=== PATIENT | female | born 1965 | race Caucasian/White ===

== ENCOUNTER 2017-02-23 11:21 | Emergency (ER) | payer MEDICAID ==
[~2017-02-23] VITALS: Ht 172.7 cm; Wt 90.0 kg
[~2017-02-23 11:21] MED LIST: ALBU8.5H3 INH; ALPR0.254 PO; ALPR0.257 PO; BUPR75TA6 PO; CEFD300C2 PO; CYCL-259 PO; DOXY100T PO; FLUT1AER INH; FURO-93 PO; GABA100C8 PO; GUAI5SYR PO; HYDR-3138 PO; HYDR25TA11 PO; HYDR25TA6 PO; LIDO700A5 TD; LISI-167 PO; LISI5TAB7 PO; LORA0.5T PO; METH4TAB2 PO; POTA10CA61 PO; RANI150T4 PO; SERT25TA3 PO; SILD20TA2 PO; TADA20TA33 PO; TRAM50TA2 PO; TRAZ100T15 PO; TREP1TAB PO; TREPROSTINIL DIOLAMINE PO; VERA240T86 PO; [UNRECOGNIZED DRUG - CODE] PO
[2017-02-23] MEDS ORDERED: HYDROmorphone 1 MG/ML, 1ML IV PRN (12:00)
[2017-02-23] MEDS ORDERED: SODIUM CHLORIDE FLUSH 10ML SYR IVF ONE (12:00)
[2017-02-23] MEDS ORDERED: HYDROmorphone 1 MG/ML, 1ML ONE (12:39)
[2017-02-23 13:00] LABS: HEMOGLOBIN 13.4 g/dL (11.7-16.4)
[2017-02-23] MEDS ORDERED: METHOCARBAMOL 1,000 MG in DEXTROSE 5% 100 ML IV ONE (13:00)
[2017-02-23 13:10] LABS: ASPARTATE AMINO TRANSFERASE 25 U/L (15-37); BLOOD UREA NITROGEN 18 mg/dL (7-18)
[2017-02-23 13:16] LABS: IS PT STATUS REG ER OR PRE ER? YES
[2017-02-23 13:35] VITALS: BP 148/91
== END 2017-02-23 14:23 | disposition home or self-care (01) ==
LOC: ED 12:54
DX: S29.019A Strain of muscle and tendon of unspecified wall of thorax, initial encounter (principal); I11.0 Hypertensive heart disease with heart failure; I50.9 Heart failure, unspecified; W10.9XXA Fall (on) (from) unspecified stairs and steps, initial encounter; Y93.89 Activity, other specified; Y92.89 Other specified places as the place of occurrence of the external cause; Y99.8 Other external cause status
CPT/HCPCS: 36415; 71020; 80053; 83880; 84484; 85025; 93005; 96365; 96375; 99285; J1170; J2800

== ENCOUNTER 2017-07-07 08:45 | Inpatient (IN) | payer MEDICAID ==
[~2017-07-07] VITALS: Ht 172.7 cm; Wt 98.3 kg
[~2017-07-07 08:45] MED LIST changes: -ALBU8.5H3 INH; +ALBU8.5H8 INH; -CEFD300C2 PO; +CEFD300C37 PO; +GABA-826 PO; -GABA100C8 PO; -HYDR-3138 PO; +HYDR-3237 PO
[2017-07-07] MEDS ORDERED: SODIUM CHLORIDE FLUSH 10ML SYR IVF ONE (09:30)
[2017-07-07] MEDS ORDERED: ASPIRIN 81 MG TABLET CHEW PO ONE (09:30)
[2017-07-07] MEDS ORDERED: ASPIRIN 81 MG TABLET CHEW ONE (09:36)
[2017-07-07 09:46] LABS: HEMATOCRIT 41.4 % (34.6-47.8); HEMOGLOBIN 13.8 g/dL (11.7-16.4); WHITE BLOOD COUNT 7.1 x10^3/uL (3.4-10)
[2017-07-07 09:58] LABS: ASPARTATE AMINO TRANSFERASE 18 U/L (15-37); BLOOD UREA NITROGEN 14 mg/dL (7-18)
[2017-07-07 10:03] LABS: IS PT STATUS REG ER OR PRE ER? YES
[2017-07-07] MEDS ORDERED: MORPHINE SULFATE 4 MG/ML, 1ML ONE ×2 (10:57→12:11)
[2017-07-07] MEDS: MORPHINE SULFATE 4 MG/ML, 1ML IVPush PRN ×2 (10:58→12:13)
[2017-07-07] MEDS ORDERED: LORazepam 2 MG/ML, 1ML IVPush STA (13:19)
[2017-07-07] MEDS ORDERED: GABA-827 PO (13:26)
[2017-07-07] MEDS ORDERED: METH500T7 PO (13:26)
[2017-07-07] MEDS ORDERED: FURO-93 PO (13:26)
[2017-07-07] MEDS ORDERED: ONDANSETRON ODT 4 MG PO PRN ×2 (14:30→16:30)
[2017-07-07] MEDS ORDERED: ALBUTEROL SULFATE 2.5 MG/3 ML NPPB PRN ×2 (14:30→16:30)
[2017-07-07] MEDS ORDERED: POLYETHYLENE GLYCOL 17 GM PACKET PO PRN ×2 (14:30→16:30)
[2017-07-07] MEDS ORDERED: ENALAPRILAT 1.25 MG/ML, 2ML IVPush PRN ×2 (14:30→16:30)
[2017-07-07] MEDS ORDERED: ONDANSETRON 2MG/ML, 2ML IVPush PRN ×2 (14:30→16:30)
[2017-07-07] MEDS ORDERED: ACETAMINOPHEN 325 MG TABLET PO PRN ×2 (14:30→16:30)
[2017-07-07] MEDS ORDERED: BISACODYL 10 MG SUPP PR PRN ×2 (14:30→16:30)
[2017-07-07 14:50] LABS: IS PT STATUS REG ER OR PRE ER? YES
[2017-07-07] MEDS: TREPROSTINIL DIOLAMINE HOMEMEDPO SCH ×2 (16:00→21:00)
[2017-07-07] MEDS ORDERED: SILDENAFIL 20 MG TABLET HOMEMEDPO SCH (16:00)
[2017-07-07 16:30] VITALS: BP 108/78
[2017-07-07] MEDS ORDERED: LORazepam 1MG TABLET PO PRN (17:00)
[2017-07-07] MEDS ORDERED: OMNIPAQUE 350 MG/ML, 100ML BOTTLE ONE (17:23)
[2017-07-07] MEDS: HYDROcodone/APAP 5/325 TABLET PO PRN ×2 (17:36→21:35)
[2017-07-07] MEDS: GABAPENTIN 400 MG CAPSULE PO SCH ×2 (17:37→21:35)
[2017-07-07] MEDS: methylPREDNISolone SOD SUCC 40 MG/ML IVPush SCH ×2 (17:38→22:57)
[2017-07-07] MEDS: ENOXAPARIN 40 MG/0.4 ML SQ SCH (17:39)
[2017-07-07 18:40] VITALS: BP 119/83
[2017-07-07] MEDS: METHOCARBAMOL 500 MG TABLET PO PRN (19:36)
[2017-07-07] MEDS ORDERED: BUPROPION 75 MG TABLET PO SCH (21:00)
[2017-07-07] MEDS: SILDENAFIL 20 MG TABLET HOMEMEDPO SCH (21:00)
[2017-07-07 21:34] LABS: IS PT STATUS REG ER OR PRE ER? NO
[2017-07-07] MEDS: TRAZODONE 100MG TABLET PO SCH (21:35)
[2017-07-07] MEDS: LORazepam 1MG TABLET PO PRN (21:59)
[2017-07-08 01:41] VITALS: BP 100/64
[2017-07-08] MEDS: HYDROcodone/APAP 5/325 TABLET PO PRN ×5 (02:11→20:01)
[2017-07-08 02:12] VITALS: BP 103/65
[2017-07-08] MEDS: LORazepam 1MG TABLET PO PRN ×3 (03:59→21:29)
[2017-07-08 04:02] VITALS: BP 110/71
[2017-07-08 04:51] LABS: ABG COLLECTION SITE RIGHT RADIAL; COLLATERAL CIRCULATION TESTING NORMAL
[2017-07-08 04:59] LABS: BLOOD UREA NITROGEN 18 mg/dL (7-18)
[2017-07-08] MEDS: methylPREDNISolone SOD SUCC 40 MG/ML IVPush SCH ×4 (05:04→23:04)
[2017-07-08 05:05] LABS: HEMATOCRIT 41.4 % (34.6-47.8); HEMOGLOBIN 13.8 g/dL (11.7-16.4); WHITE BLOOD COUNT 9.6 x10^3/uL (3.4-10)
[2017-07-08] MEDS: ALBUTEROL SULFATE 2.5 MG/3 ML NPPB SCH ×4 (07:00→19:44)
[2017-07-08] MEDS ORDERED: PANTOPROZOLE 40MG TABLET PO SCH (07:30)
[2017-07-08] MEDS ORDERED: BUPROPION 75 MG TABLET PO SCH (08:00)
[2017-07-08] MEDS ORDERED: FLUTICASONE/VILANTEROL 100-25MCG/INH INH SCH (09:00)
[2017-07-08] MEDS ORDERED: SERTRALINE 100MG TABLET PO SCH (09:00)
[2017-07-08] MEDS: SILDENAFIL 20 MG TABLET HOMEMEDPO SCH ×3 (09:00→21:21)
[2017-07-08] MEDS ORDERED: FUROSEMIDE 20 MG TABLET PO SCH (09:00)
[2017-07-08] MEDS: TREPROSTINIL DIOLAMINE HOMEMEDPO SCH ×3 (09:00→21:20)
[2017-07-08] MEDS: PANTOPROZOLE 40MG TABLET PO SCH (09:09)
[2017-07-08] MEDS: SERTRALINE 100MG TABLET PO SCH (09:10)
[2017-07-08] MEDS: FUROSEMIDE 20 MG TABLET PO SCH (09:10)
[2017-07-08] MEDS: GABAPENTIN 400 MG CAPSULE PO SCH ×3 (09:10→21:22)
[2017-07-08] MEDS: METHOCARBAMOL 500 MG TABLET PO PRN ×3 (09:12→23:07)
[2017-07-08] MEDS: FLUTICASONE/VILANTEROL 100-25MCG/INH INH SCH (09:18)
[2017-07-08] MEDS ORDERED: FUROSEMIDE 40 MG/4 ML IV ONE (11:30)
[2017-07-08] MEDS: ENOXAPARIN 40 MG/0.4 ML SQ SCH (16:37)
[2017-07-08] MEDS: BUPROPION 75 MG TABLET PO SCH (21:22)
[2017-07-08] MEDS: TRAZODONE 100MG TABLET PO SCH (21:23)
[2017-07-09] MEDS: HYDROcodone/APAP 5/325 TABLET PO PRN ×3 (01:53→16:47)
[2017-07-09 04:15] VITALS: BP 126/68
[2017-07-09] MEDS: methylPREDNISolone SOD SUCC 40 MG/ML IVPush SCH ×4 (05:19→23:22)
[2017-07-09] MEDS: LORazepam 1MG TABLET PO PRN ×2 (05:20→14:35)
[2017-07-09] MEDS: ALBUTEROL SULFATE 2.5 MG/3 ML NPPB SCH ×4 (07:15→19:40)
[2017-07-09] MEDS: PANTOPROZOLE 40MG TABLET PO SCH (09:56)
[2017-07-09] MEDS: FLUTICASONE/VILANTEROL 100-25MCG/INH INH SCH (09:56)
[2017-07-09] MEDS: FUROSEMIDE 20 MG TABLET PO SCH (09:56)
[2017-07-09] MEDS: GABAPENTIN 400 MG CAPSULE PO SCH ×3 (09:57→20:46)
[2017-07-09] MEDS: SERTRALINE 100MG TABLET PO SCH (09:58)
[2017-07-09] MEDS: BUPROPION 75 MG TABLET PO SCH ×2 (09:58→20:46)
[2017-07-09] MEDS: SILDENAFIL 20 MG TABLET HOMEMEDPO SCH ×3 (10:00→20:48)
[2017-07-09] MEDS: TREPROSTINIL DIOLAMINE HOMEMEDPO SCH ×3 (10:00→20:44)
[2017-07-09 13:28] LABS: DAU SCREEN DISCLAIMER
[2017-07-09] MEDS: ENOXAPARIN 40 MG/0.4 ML SQ SCH (17:39)
[2017-07-09] MEDS: TRAZODONE 100MG TABLET PO SCH (20:47)
[2017-07-10] MEDS: methylPREDNISolone SOD SUCC 40 MG/ML IVPush SCH ×4 (05:18→23:20)
[2017-07-10] MEDS: HYDROcodone/APAP 5/325 TABLET PO PRN ×4 (05:40→21:48)
[2017-07-10] MEDS: ALBUTEROL SULFATE 2.5 MG/3 ML NPPB SCH ×4 (06:50→20:19)
[2017-07-10] MEDS: SERTRALINE 100MG TABLET PO SCH (08:24)
[2017-07-10] MEDS: BUPROPION 75 MG TABLET PO SCH ×2 (08:24→21:47)
[2017-07-10] MEDS: PANTOPROZOLE 40MG TABLET PO SCH (08:24)
[2017-07-10] MEDS: FUROSEMIDE 20 MG TABLET PO SCH (08:24)
[2017-07-10] MEDS: GABAPENTIN 400 MG CAPSULE PO SCH ×3 (08:24→21:47)
[2017-07-10] MEDS: FLUTICASONE/VILANTEROL 100-25MCG/INH INH SCH (08:25)
[2017-07-10] MEDS: SILDENAFIL 20 MG TABLET HOMEMEDPO SCH ×3 (08:27→21:54)
[2017-07-10] MEDS: TREPROSTINIL DIOLAMINE HOMEMEDPO SCH ×3 (08:27→21:00)
[2017-07-10] MEDS: METHOCARBAMOL 500 MG TABLET PO PRN (12:14)
[2017-07-10] MEDS: ENOXAPARIN 40 MG/0.4 ML SQ SCH (17:15)
[2017-07-10] MEDS: LORazepam 1MG TABLET PO PRN ×2 (18:10→23:20)
[2017-07-10 18:35] VITALS: BP 109/65
[2017-07-10 19:05] VITALS: BP 106/72
[2017-07-10] MEDS: TRAZODONE 100MG TABLET PO SCH (21:47)
[2017-07-11] MEDS: HYDROcodone/APAP 5/325 TABLET PO PRN ×4 (04:10→20:44)
[2017-07-11] MEDS: methylPREDNISolone SOD SUCC 40 MG/ML IVPush SCH ×3 (06:00→21:37)
[2017-07-11] MEDS: ALBUTEROL SULFATE 2.5 MG/3 ML NPPB SCH ×4 (07:00→19:25)
[2017-07-11] MEDS: LORazepam 1MG TABLET PO PRN ×3 (07:10→18:37)
[2017-07-11] MEDS: FUROSEMIDE 20 MG TABLET PO SCH (09:52)
[2017-07-11] MEDS: FLUTICASONE/VILANTEROL 100-25MCG/INH INH SCH (09:52)
[2017-07-11] MEDS: PANTOPROZOLE 40MG TABLET PO SCH (09:52)
[2017-07-11] MEDS: BUPROPION 75 MG TABLET PO SCH ×2 (09:52→21:42)
[2017-07-11] MEDS: SERTRALINE 100MG TABLET PO SCH (09:52)
[2017-07-11] MEDS: GABAPENTIN 400 MG CAPSULE PO SCH ×3 (09:52→21:36)
[2017-07-11] MEDS: SILDENAFIL 20 MG TABLET HOMEMEDPO SCH ×3 (09:53→21:00)
[2017-07-11] MEDS: TREPROSTINIL DIOLAMINE HOMEMEDPO SCH ×3 (09:53→21:00)
[2017-07-11] MEDS ORDERED: LIDOCAINE 2%, 20ML ONE (11:44)
[2017-07-11] MEDS ORDERED: MIDAZOLAM 1 MG/ML, 5ML ONE (11:44)
[2017-07-11] MEDS ORDERED: FENTANYL PF 100 MCG/2ML ONE (11:44)
[2017-07-11] MEDS: ENOXAPARIN 40 MG/0.4 ML SQ SCH (16:30)
[2017-07-11 18:35] VITALS: BP 117/73
[2017-07-11 21:20] VITALS: BP 128/75
[2017-07-11] MEDS: TRAZODONE 100MG TABLET PO SCH (21:36)
[2017-07-12 02:15] VITALS: BP 126/83
[2017-07-12] MEDS: methylPREDNISolone SOD SUCC 40 MG/ML IVPush SCH ×4 (02:17→20:07)
[2017-07-12] MEDS: HYDROcodone/APAP 5/325 TABLET PO PRN ×3 (04:28→20:07)
[2017-07-12 06:44] VITALS: BP 108/67
[2017-07-12] MEDS: ALBUTEROL SULFATE 2.5 MG/3 ML NPPB SCH ×4 (06:48→19:28)
[2017-07-12] MEDS: FUROSEMIDE 20 MG TABLET PO SCH (08:18)
[2017-07-12] MEDS: SERTRALINE 100MG TABLET PO SCH (08:18)
[2017-07-12] MEDS: PANTOPROZOLE 40MG TABLET PO SCH (08:18)
[2017-07-12] MEDS: GABAPENTIN 400 MG CAPSULE PO SCH ×3 (08:18→21:44)
[2017-07-12] MEDS: FLUTICASONE/VILANTEROL 100-25MCG/INH INH SCH (08:22)
[2017-07-12] MEDS: LORazepam 1MG TABLET PO PRN (08:34)
[2017-07-12] MEDS: TREPROSTINIL DIOLAMINE HOMEMEDPO SCH ×3 (09:00→21:00)
[2017-07-12] MEDS ORDERED: FUROSEMIDE 40 MG TABLET PO ONE (10:00)
[2017-07-12] MEDS: BUPROPION 75 MG TABLET PO SCH (10:36)
[2017-07-12] MEDS: SPIRONOLACTONE 25 MG TABLET PO SCH (10:36)
[2017-07-12] MEDS: LORazepam 2 MG/ML, 1ML IVPush PRN ×3 (10:37→16:43)
[2017-07-12 13:29] VITALS: BP 119/77
[2017-07-12] MEDS: FUROSEMIDE 40 MG TABLET PO SCH (16:26)
[2017-07-12] MEDS: SILDENAFIL 20 MG TABLET PO SCH ×2 (16:27→21:43)
[2017-07-12] MEDS: ENOXAPARIN 40 MG/0.4 ML SQ SCH (16:29)
[2017-07-12 20:06] VITALS: BP 142/87
[2017-07-12 20:16] VITALS: BP 142/87
[2017-07-12 21:40] VITALS: BP 120/80
[2017-07-12] MEDS: TRAZODONE 100MG TABLET PO SCH (21:44)
[2017-07-13 01:44] VITALS: BP 130/83
[2017-07-13] MEDS: methylPREDNISolone SOD SUCC 40 MG/ML IVPush SCH ×4 (02:35→23:27)
[2017-07-13 05:30] LABS: BLOOD UREA NITROGEN 35 mg/dL (7-18)
[2017-07-13 06:35] VITALS: BP 109/69
[2017-07-13] MEDS: ALBUTEROL SULFATE 2.5 MG/3 ML NPPB SCH ×4 (07:00→19:45)
[2017-07-13] MEDS: SERTRALINE 100MG TABLET PO SCH (08:40)
[2017-07-13] MEDS: PANTOPROZOLE 40MG TABLET PO SCH (08:40)
[2017-07-13] MEDS: SPIRONOLACTONE 25 MG TABLET PO SCH (08:40)
[2017-07-13] MEDS: GABAPENTIN 400 MG CAPSULE PO SCH ×2 (08:41→21:12)
[2017-07-13] MEDS: FUROSEMIDE 40 MG TABLET PO SCH ×2 (08:41→16:34)
[2017-07-13] MEDS: SILDENAFIL 20 MG TABLET PO SCH ×3 (08:41→21:11)
[2017-07-13] MEDS: FLUTICASONE/VILANTEROL 100-25MCG/INH INH SCH (08:48)
[2017-07-13] MEDS: TREPROSTINIL DIOLAMINE HOMEMEDPO SCH ×3 (08:48→21:00)
[2017-07-13] MEDS: HYDROcodone/APAP 5/325 TABLET PO PRN ×2 (12:10→18:35)
[2017-07-13 12:38] VITALS: BP 94/56
[2017-07-13] MEDS: ENOXAPARIN 40 MG/0.4 ML SQ SCH (16:32)
[2017-07-13 19:25] VITALS: BP 105/68
[2017-07-13] MEDS: TRAZODONE 100MG TABLET PO SCH (21:12)
[2017-07-14 00:16] VITALS: BP 106/67
[2017-07-14] MEDS: methylPREDNISolone SOD SUCC 40 MG/ML IVPush SCH ×4 (06:10→23:10)
[2017-07-14] MEDS: ALBUTEROL SULFATE 2.5 MG/3 ML NPPB SCH ×4 (06:51→23:30)
[2017-07-14 08:04] VITALS: BP 110/68
[2017-07-14] MEDS: SILDENAFIL 20 MG TABLET PO SCH ×3 (09:37→20:35)
[2017-07-14] MEDS: FUROSEMIDE 40 MG TABLET PO SCH ×2 (09:38→15:31)
[2017-07-14] MEDS: SERTRALINE 100MG TABLET PO SCH (09:38)
[2017-07-14] MEDS: GABAPENTIN 400 MG CAPSULE PO SCH ×2 (09:38→20:35)
[2017-07-14] MEDS: FLUTICASONE/VILANTEROL 100-25MCG/INH INH SCH (09:38)
[2017-07-14] MEDS: PANTOPROZOLE 40MG TABLET PO SCH (09:38)
[2017-07-14] MEDS: SPIRONOLACTONE 25 MG TABLET PO SCH (09:38)
[2017-07-14] MEDS: TREPROSTINIL DIOLAMINE HOMEMEDPO SCH ×3 (09:43→20:34)
[2017-07-14] MEDS: HYDROcodone/APAP 5/325 TABLET PO PRN ×3 (13:34→23:10)
[2017-07-14 13:36] VITALS: BP 102/65
[2017-07-14] MEDS: METHOCARBAMOL 500 MG TABLET PO PRN ×2 (15:28→21:57)
[2017-07-14] MEDS ORDERED: POLYETHYLENE GLYCOL 17 GM PACKET PO PRN (15:30)
[2017-07-14] MEDS ORDERED: BISACODYL 10 MG SUPP PR PRN (15:30)
[2017-07-14] MEDS ORDERED: ONDANSETRON 2MG/ML, 2ML IVPush PRN (15:30)
[2017-07-14] MEDS ORDERED: ACETAMINOPHEN 325 MG TABLET PO PRN (15:30)
[2017-07-14] MEDS ORDERED: ONDANSETRON ODT 4 MG PO PRN (15:30)
[2017-07-14] MEDS ORDERED: ENALAPRILAT 1.25 MG/ML, 2ML IVPush PRN (15:30)
[2017-07-14] MEDS ORDERED: MAALOX/HYOSCYAMINE/LIDOCAINE 45 ML BTL PO ONE (16:00)
[2017-07-14] MEDS: ENOXAPARIN 40 MG/0.4 ML SQ SCH (17:57)
[2017-07-14 20:20] VITALS: BP 96/56
[2017-07-14] MEDS: TRAZODONE 100MG TABLET PO SCH (20:35)
[2017-07-15 02:49] VITALS: BP 120/74
[2017-07-15] MEDS: methylPREDNISolone SOD SUCC 40 MG/ML IVPush SCH ×3 (06:11→16:55)
[2017-07-15] MEDS: FUROSEMIDE 40 MG TABLET PO SCH ×2 (06:12→15:15)
[2017-07-15] MEDS: HYDROcodone/APAP 5/325 TABLET PO PRN ×4 (06:15→21:01)
[2017-07-15 06:46] VITALS: BP 134/87
[2017-07-15] MEDS: ALBUTEROL SULFATE 2.5 MG/3 ML NPPB SCH ×4 (07:55→20:10)
[2017-07-15] MEDS: SERTRALINE 100MG TABLET PO SCH (08:48)
[2017-07-15] MEDS: FLUTICASONE/VILANTEROL 100-25MCG/INH INH SCH (08:49)
[2017-07-15] MEDS: GABAPENTIN 400 MG CAPSULE PO SCH ×2 (08:49→22:21)
[2017-07-15] MEDS: SPIRONOLACTONE 25 MG TABLET PO SCH (08:49)
[2017-07-15] MEDS: SILDENAFIL 20 MG TABLET PO SCH ×3 (08:49→22:21)
[2017-07-15] MEDS: PANTOPROZOLE 40MG TABLET PO SCH (08:49)
[2017-07-15] MEDS: TREPROSTINIL DIOLAMINE HOMEMEDPO SCH ×3 (08:52→21:00)
[2017-07-15 11:42] VITALS: BP 108/66
[2017-07-15 14:42] VITALS: BP 113/67
[2017-07-15] MEDS: ENOXAPARIN 40 MG/0.4 ML SQ SCH (16:55)
[2017-07-15 18:28] VITALS: BP 146/79
[2017-07-15] MEDS: TRAZODONE 100MG TABLET PO SCH (22:21)
[2017-07-16] MEDS: methylPREDNISolone SOD SUCC 40 MG/ML IVPush SCH (00:31)
[2017-07-16 00:40] VITALS: BP 112/70
[2017-07-16] MEDS: HYDROcodone/APAP 5/325 TABLET PO PRN ×2 (03:27→08:31)
[2017-07-16] MEDS: ALBUTEROL SULFATE 2.5 MG/3 ML NPPB SCH ×4 (08:00→19:50)
[2017-07-16 08:03] VITALS: BP 110/68
[2017-07-16] MEDS: FLUTICASONE/VILANTEROL 100-25MCG/INH INH SCH (08:31)
[2017-07-16] MEDS: SILDENAFIL 20 MG TABLET PO SCH ×3 (08:31→19:57)
[2017-07-16] MEDS: GABAPENTIN 400 MG CAPSULE PO SCH ×2 (08:32→19:57)
[2017-07-16] MEDS: SPIRONOLACTONE 25 MG TABLET PO SCH (08:32)
[2017-07-16] MEDS: SERTRALINE 100MG TABLET PO SCH (08:32)
[2017-07-16] MEDS: TREPROSTINIL DIOLAMINE HOMEMEDPO SCH ×3 (08:33→19:57)
[2017-07-16] MEDS: PANTOPROZOLE 40MG TABLET PO SCH (08:39)
[2017-07-16] MEDS: FUROSEMIDE 40 MG TABLET PO SCH ×2 (08:40→16:16)
[2017-07-16 14:40] VITALS: BP 117/70
[2017-07-16 16:14] VITALS: BP 107/63
[2017-07-16] MEDS: LIDODERM 5% PATCH TD SCH (16:15)
[2017-07-16] MEDS: ENOXAPARIN 40 MG/0.4 ML SQ SCH (16:15)
[2017-07-16 19:16] VITALS: BP 92/55
[2017-07-16] MEDS: TRAZODONE 100MG TABLET PO SCH (19:57)
[2017-07-17 01:16] VITALS: BP 88/53
[2017-07-17] MEDS: ALBUTEROL SULFATE 2.5 MG/3 ML NPPB SCH ×4 (07:00→19:29)
[2017-07-17 07:40] VITALS: BP 97/63
[2017-07-17] MEDS: FLUTICASONE/VILANTEROL 100-25MCG/INH INH SCH (09:43)
[2017-07-17] MEDS: GABAPENTIN 400 MG CAPSULE PO SCH ×2 (09:47→20:31)
[2017-07-17] MEDS: SILDENAFIL 20 MG TABLET PO SCH ×3 (09:48→20:31)
[2017-07-17] MEDS: SERTRALINE 100MG TABLET PO SCH (09:48)
[2017-07-17] MEDS: FUROSEMIDE 40 MG TABLET PO SCH ×2 (09:50→15:00)
[2017-07-17] MEDS: TREPROSTINIL DIOLAMINE HOMEMEDPO SCH ×3 (09:51→20:31)
[2017-07-17] MEDS: SPIRONOLACTONE 25 MG TABLET PO SCH (09:51)
[2017-07-17] MEDS: PANTOPROZOLE 40MG TABLET PO SCH (09:51)
[2017-07-17] MEDS: HYDROcodone/APAP 5/325 TABLET PO PRN ×2 (09:53→16:06)
[2017-07-17] MEDS: FLUCONAZOLE 200 MG TABLET PO SCH (11:15)
[2017-07-17 13:39] VITALS: BP 90/55
[2017-07-17 15:42] VITALS: BP 93/58
[2017-07-17] MEDS: LIDODERM 5% PATCH TD SCH (15:45)
[2017-07-17] MEDS: ENOXAPARIN 40 MG/0.4 ML SQ SCH (16:07)
[2017-07-17 16:10] LABS: BLOOD UREA NITROGEN 54 mg/dL (7-18)
[2017-07-17 19:23] VITALS: BP 98/62
[2017-07-17] MEDS: TRAZODONE 100MG TABLET PO SCH (20:31)
[2017-07-18 02:40] VITALS: BP 101/64
[2017-07-18] MEDS: HYDROcodone/APAP 5/325 TABLET PO PRN ×4 (04:28→21:42)
[2017-07-18 04:59] VITALS: BP 121/76
[2017-07-18] MEDS ORDERED: FUROSEMIDE 40 MG TABLET PO SCH (07:00)
[2017-07-18] MEDS: ALBUTEROL SULFATE 2.5 MG/3 ML NPPB SCH ×4 (07:00→20:00)
[2017-07-18] MEDS ORDERED: SILD20TA2 PO (07:40)
[2017-07-18] MEDS ORDERED: ALPR-475 PO (07:40)
[2017-07-18] MEDS ORDERED: BUPR75TA6 PO (07:40)
[2017-07-18] MEDS ORDERED: Lidoderm 5% Patch TD (07:40)
[2017-07-18] MEDS ORDERED: GABA-827 PO (07:40)
[2017-07-18] MEDS ORDERED: ALBU8.5H8 INH (07:40)
[2017-07-18] MEDS ORDERED: RANI150T4 PO (07:40)
[2017-07-18] MEDS ORDERED: FLUT1AER INH (07:40)
[2017-07-18] MEDS ORDERED: SERT25TA3 PO (07:40)
[2017-07-18] MEDS ORDERED: FLUC200T PO (07:40)
[2017-07-18] MEDS ORDERED: PRED20TA PO (07:40)
[2017-07-18] MEDS ORDERED: [UNRECOGNIZED DRUG - CODE] PO (07:40)
[2017-07-18 07:41] VITALS: BP 113/74
[2017-07-18] MEDS: PANTOPROZOLE 40MG TABLET PO SCH (07:54)
[2017-07-18] MEDS: SERTRALINE 100MG TABLET PO SCH (07:55)
[2017-07-18] MEDS: FLUTICASONE/VILANTEROL 100-25MCG/INH INH SCH (07:55)
[2017-07-18] MEDS: SILDENAFIL 20 MG TABLET PO SCH ×3 (07:55→21:25)
[2017-07-18] MEDS: GABAPENTIN 400 MG CAPSULE PO SCH ×2 (07:55→21:25)
[2017-07-18] MEDS: FLUCONAZOLE 200 MG TABLET PO SCH (07:55)
[2017-07-18] MEDS: TREPROSTINIL DIOLAMINE HOMEMEDPO SCH ×3 (08:08→21:00)
[2017-07-18 15:00] VITALS: BP 117/71
[2017-07-18] MEDS: LIDODERM 5% PATCH TD SCH (16:16)
[2017-07-18] MEDS: ENOXAPARIN 40 MG/0.4 ML SQ SCH (16:20)
[2017-07-18 18:38] VITALS: BP 113/67
[2017-07-18] MEDS: TRAZODONE 100MG TABLET PO SCH (21:24)
[2017-07-19 00:46] VITALS: BP 111/70
[2017-07-19] MEDS: HYDROcodone/APAP 5/325 TABLET PO PRN ×4 (05:03→20:39)
[2017-07-19] MEDS: ALBUTEROL SULFATE 2.5 MG/3 ML NPPB SCH ×4 (06:54→20:00)
[2017-07-19 09:20] VITALS: BP 122/81
[2017-07-19] MEDS: PANTOPROZOLE 40MG TABLET PO SCH (09:34)
[2017-07-19] MEDS: FLUCONAZOLE 200 MG TABLET PO SCH (09:35)
[2017-07-19] MEDS: SERTRALINE 100MG TABLET PO SCH (09:35)
[2017-07-19] MEDS: SILDENAFIL 20 MG TABLET PO SCH ×2 (09:35→16:22)
[2017-07-19] MEDS: GABAPENTIN 400 MG CAPSULE PO SCH ×2 (09:35→20:38)
[2017-07-19] MEDS: TREPROSTINIL DIOLAMINE HOMEMEDPO SCH ×2 (09:36→16:22)
[2017-07-19] MEDS: FLUTICASONE/VILANTEROL 100-25MCG/INH INH SCH (09:40)
[2017-07-19 14:08] VITALS: BP 112/67
[2017-07-19] MEDS ORDERED: FUROSEMIDE 40 MG TABLET ONE (14:13)
[2017-07-19] MEDS: FUROSEMIDE 20 MG TABLET PO SCH (14:18)
[2017-07-19] MEDS: ENOXAPARIN 40 MG/0.4 ML SQ SCH (16:22)
[2017-07-19] MEDS: LIDODERM 5% PATCH TD SCH (17:48)
[2017-07-19 19:43] VITALS: BP 102/63
[2017-07-19] MEDS: TRAZODONE 100MG TABLET PO SCH (20:39)
[2017-07-20 00:27] VITALS: BP 129/79
[2017-07-20] MEDS: SILDENAFIL 20 MG TABLET PO SCH ×3 (00:33→15:22)
[2017-07-20] MEDS: HYDROcodone/APAP 5/325 TABLET PO PRN ×4 (00:33→19:59)
[2017-07-20 05:19] LABS: BLOOD UREA NITROGEN 32 mg/dL (7-18)
[2017-07-20] MEDS: ALBUTEROL SULFATE 2.5 MG/3 ML NPPB SCH ×4 (07:45→20:00)
[2017-07-20] MEDS: TREPROSTINIL DIOLAMINE HOMEMEDPO SCH ×3 (09:00→15:23)
[2017-07-20] MEDS: GABAPENTIN 400 MG CAPSULE PO SCH ×2 (09:10→19:58)
[2017-07-20] MEDS: SERTRALINE 100MG TABLET PO SCH (09:10)
[2017-07-20] MEDS: FLUCONAZOLE 200 MG TABLET PO SCH (09:11)
[2017-07-20] MEDS: FUROSEMIDE 20 MG TABLET PO SCH (09:11)
[2017-07-20] MEDS: FLUTICASONE/VILANTEROL 100-25MCG/INH INH SCH (09:11)
[2017-07-20] MEDS: PANTOPROZOLE 40MG TABLET PO SCH (09:11)
[2017-07-20] MEDS: METHOCARBAMOL 500 MG TABLET PO PRN (09:43)
[2017-07-20] MEDS ORDERED: FUROSEMIDE 40 MG/4 ML IV ONE (14:00)
[2017-07-20 14:44] VITALS: BP 114/70
[2017-07-20] MEDS: LIDODERM 5% PATCH TD SCH (15:23)
[2017-07-20] MEDS: ENOXAPARIN 40 MG/0.4 ML SQ SCH (16:38)
[2017-07-20 19:10] VITALS: BP 102/64
[2017-07-20] MEDS: TRAZODONE 100MG TABLET PO SCH (19:59)
[2017-07-21] MEDS: HYDROcodone/APAP 5/325 TABLET PO PRN ×4 (00:09→21:24)
[2017-07-21] MEDS: SILDENAFIL 20 MG TABLET PO SCH ×3 (00:10→17:00)
[2017-07-21 00:12] VITALS: BP 119/85
[2017-07-21 05:43] LABS: BLOOD UREA NITROGEN 32 mg/dL (7-18)
[2017-07-21] MEDS: ALBUTEROL SULFATE 2.5 MG/3 ML NPPB SCH ×4 (07:51→20:20)
[2017-07-21 08:00] VITALS: BP 131/81
[2017-07-21] MEDS ORDERED: FUROSEMIDE 10 MG/ML ORAL SOL PO SCH (09:00)
[2017-07-21] MEDS: TREPROSTINIL DIOLAMINE HOMEMEDPO SCH ×3 (09:00→16:00)
[2017-07-21] MEDS: GABAPENTIN 400 MG CAPSULE PO SCH ×2 (10:05→21:24)
[2017-07-21] MEDS: SERTRALINE 100MG TABLET PO SCH (10:05)
[2017-07-21] MEDS: FLUCONAZOLE 200 MG TABLET PO SCH (10:05)
[2017-07-21] MEDS: PANTOPROZOLE 40MG TABLET PO SCH (10:06)
[2017-07-21] MEDS: FUROSEMIDE 20 MG TABLET PO SCH (10:06)
[2017-07-21] MEDS: FLUTICASONE/VILANTEROL 100-25MCG/INH INH SCH (10:06)
[2017-07-21 14:03] VITALS: BP 97/62
[2017-07-21] MEDS: LIDODERM 5% PATCH TD SCH (17:00)
[2017-07-21] MEDS: ENOXAPARIN 40 MG/0.4 ML SQ SCH (17:01)
[2017-07-21 21:12] VITALS: BP 102/64
[2017-07-21] MEDS: TRAZODONE 100MG TABLET PO SCH (21:24)
[2017-07-22 00:13] VITALS: BP 118/80
[2017-07-22] MEDS: SILDENAFIL 20 MG TABLET PO SCH ×4 (00:16→21:40)
[2017-07-22] MEDS: HYDROcodone/APAP 5/325 TABLET PO PRN ×4 (05:09→20:01)
[2017-07-22 05:15] LABS: BLOOD UREA NITROGEN 34 mg/dL (7-18)
[2017-07-22] MEDS: ALBUTEROL SULFATE 2.5 MG/3 ML NPPB SCH ×4 (06:54→15:14)
[2017-07-22 07:52] VITALS: BP 111/73
[2017-07-22] MEDS: FLUTICASONE/VILANTEROL 100-25MCG/INH INH SCH (09:18)
[2017-07-22] MEDS: FLUCONAZOLE 200 MG TABLET PO SCH (09:21)
[2017-07-22] MEDS: FUROSEMIDE 20 MG TABLET PO SCH (09:22)
[2017-07-22] MEDS: GABAPENTIN 400 MG CAPSULE PO SCH ×2 (09:23→21:40)
[2017-07-22] MEDS: SERTRALINE 100MG TABLET PO SCH (09:25)
[2017-07-22] MEDS: PANTOPROZOLE 40MG TABLET PO SCH (09:26)
[2017-07-22] MEDS: METHOCARBAMOL 500 MG TABLET PO PRN ×2 (09:28→21:40)
[2017-07-22] MEDS: TREPROSTINIL DIOLAMINE HOMEMEDPO SCH ×4 (09:29→22:00)
[2017-07-22 11:15] VITALS: BP 107/73
[2017-07-22 13:18] VITALS: BP 117/63
[2017-07-22] MEDS: ENOXAPARIN 40 MG/0.4 ML SQ SCH (16:06)
[2017-07-22] MEDS: LIDODERM 5% PATCH TD SCH (16:07)
[2017-07-22 19:30] VITALS: BP 103/65
[2017-07-22] MEDS: TRAZODONE 100MG TABLET PO SCH (21:39)
[2017-07-23 03:00] VITALS: BP 111/71
[2017-07-23] MEDS: HYDROcodone/APAP 5/325 TABLET PO PRN ×4 (03:09→20:54)
[2017-07-23] MEDS: METHOCARBAMOL 500 MG TABLET PO PRN ×3 (04:57→22:49)
[2017-07-23 05:35] LABS: BLOOD UREA NITROGEN 37 mg/dL (7-18)
[2017-07-23 07:15] VITALS: BP 109/75
[2017-07-23] MEDS: ALBUTEROL SULFATE 2.5 MG/3 ML NPPB SCH ×4 (07:20→19:11)
[2017-07-23] MEDS: GABAPENTIN 400 MG CAPSULE PO SCH ×2 (09:33→20:54)
[2017-07-23] MEDS: FLUCONAZOLE 200 MG TABLET PO SCH (09:34)
[2017-07-23] MEDS: PANTOPROZOLE 40MG TABLET PO SCH (09:34)
[2017-07-23] MEDS: FUROSEMIDE 20 MG TABLET PO SCH (09:34)
[2017-07-23] MEDS: SILDENAFIL 20 MG TABLET PO SCH ×4 (09:34→22:50)
[2017-07-23] MEDS: SERTRALINE 100MG TABLET PO SCH (09:34)
[2017-07-23] MEDS: FLUTICASONE/VILANTEROL 100-25MCG/INH INH SCH ×2 (09:34→10:09)
[2017-07-23] MEDS: TREPROSTINIL DIOLAMINE HOMEMEDPO SCH ×3 (09:39→22:50)
[2017-07-23 15:36] VITALS: BP 116/66
[2017-07-23] MEDS: ENOXAPARIN 40 MG/0.4 ML SQ SCH (16:59)
[2017-07-23] MEDS: LIDODERM 5% PATCH TD SCH (17:00)
[2017-07-23 19:21] VITALS: BP 120/72
[2017-07-23] MEDS: TRAZODONE 100MG TABLET PO SCH (20:54)
[2017-07-24 02:04] VITALS: BP 99/61
[2017-07-24] MEDS: HYDROcodone/APAP 5/325 TABLET PO PRN ×4 (02:10→18:47)
[2017-07-24 05:40] LABS: BLOOD UREA NITROGEN 28 mg/dL (7-18)
[2017-07-24] MEDS: METHOCARBAMOL 500 MG TABLET PO PRN ×2 (06:14→12:23)
[2017-07-24] MEDS: ALBUTEROL SULFATE 2.5 MG/3 ML NPPB SCH ×4 (06:41→20:00)
[2017-07-24 07:55] VITALS: BP_SYST 110; BP_SYST 141; BP_DIAS 73; BP_DIAS 75
[2017-07-24] MEDS: GABAPENTIN 400 MG CAPSULE PO SCH ×2 (09:13→21:19)
[2017-07-24] MEDS: FLUCONAZOLE 200 MG TABLET PO SCH (09:13)
[2017-07-24] MEDS: SERTRALINE 100MG TABLET PO SCH (09:13)
[2017-07-24] MEDS: FUROSEMIDE 20 MG TABLET PO SCH (09:13)
[2017-07-24] MEDS: PANTOPROZOLE 40MG TABLET PO SCH (09:13)
[2017-07-24] MEDS: FLUTICASONE/VILANTEROL 100-25MCG/INH INH SCH (09:14)
[2017-07-24] MEDS: TREPROSTINIL DIOLAMINE HOMEMEDPO SCH ×3 (09:14→21:17)
[2017-07-24] MEDS: SILDENAFIL 20 MG TABLET PO SCH ×3 (09:18→21:20)
[2017-07-24 12:50] VITALS: BP 104/70
[2017-07-24] MEDS ORDERED: FUROSEMIDE 20 MG/2 ML IV ONE (16:00)
[2017-07-24] MEDS: LIDODERM 5% PATCH TD SCH (16:38)
[2017-07-24] MEDS: ENOXAPARIN 40 MG/0.4 ML SQ SCH (16:42)
[2017-07-24 20:30] VITALS: BP 100/66
[2017-07-24] MEDS: TRAZODONE 100MG TABLET PO SCH (21:18)
[2017-07-24] MEDS: GUAIFENESIN ER 600 MG TABLET PO SCH (21:19)
[2017-07-25] MEDS: HYDROcodone/APAP 5/325 TABLET PO PRN ×4 (00:03→18:08)
[2017-07-25 01:30] VITALS: BP 103/68
[2017-07-25] MEDS: METHOCARBAMOL 500 MG TABLET PO PRN ×2 (03:16→16:42)
[2017-07-25 05:24] LABS: BLOOD UREA NITROGEN 26 mg/dL (7-18)
[2017-07-25] MEDS: ALBUTEROL SULFATE 2.5 MG/3 ML NPPB SCH ×3 (06:56→14:57)
[2017-07-25 07:00] VITALS: BP 119/73
[2017-07-25] MEDS: FLUTICASONE/VILANTEROL 100-25MCG/INH INH SCH (10:10)
[2017-07-25] MEDS: PANTOPROZOLE 40MG TABLET PO SCH (10:10)
[2017-07-25] MEDS: GABAPENTIN 400 MG CAPSULE PO SCH (10:11)
[2017-07-25] MEDS: GUAIFENESIN ER 600 MG TABLET PO SCH (10:11)
[2017-07-25] MEDS: SERTRALINE 100MG TABLET PO SCH (10:11)
[2017-07-25] MEDS: FLUCONAZOLE 200 MG TABLET PO SCH (10:11)
[2017-07-25] MEDS: FUROSEMIDE 20 MG TABLET PO SCH (10:11)
[2017-07-25] MEDS: SILDENAFIL 20 MG TABLET PO SCH ×2 (10:12→16:38)
[2017-07-25] MEDS: TREPROSTINIL DIOLAMINE HOMEMEDPO SCH ×2 (10:12→16:40)
[2017-07-25 12:40] VITALS: BP 101/61
[2017-07-25] MEDS ORDERED: TRAZ100T15 PO (15:56)
[2017-07-25] MEDS ORDERED: PRED5TAB PO (15:56)
[2017-07-25] MEDS ORDERED: METH500T7 PO (15:57)
[2017-07-25] MEDS ORDERED: FURO20TA3 PO (15:57)
[2017-07-25] MEDS: LIDODERM 5% PATCH TD SCH (16:38)
[2017-07-25] MEDS: ENOXAPARIN 40 MG/0.4 ML SQ SCH (16:42)
== END 2017-07-25 18:21 | DRG 286 ==
LOC: ED 09:11 → EDIP 13:19 → 5SO 15:51 → CSU 07-08 05:42 → 5SO 07-10 18:24
PROVIDERS: ATTEND Internal Medicine
PROC: 4A023N6 Measurement of Cardiac Sampling and Pressure, Right Heart, Percutaneous Approach (ICD-10-PCS; principal; 2017-07-11)
PROC: 4A133B3 Monitoring of Arterial Pressure, Pulmonary, Percutaneous Approach (ICD-10-PCS; 2017-07-11)
PROC: 4A1239Z Monitoring of Cardiac Output, Percutaneous Approach (ICD-10-PCS; 2017-07-11)
DX: I27.0 Primary pulmonary hypertension (principal); J96.21 Acute and chronic respiratory failure with hypoxia; I13.0 Hypertensive heart and chronic kidney disease with heart failure and stage 1 through stage 4 chronic kidney disease, or unspecified chronic kidney disease; I50.32 Chronic diastolic (congestive) heart failure; F33.1 Major depressive disorder, recurrent, moderate; F41.0 Panic disorder [episodic paroxysmal anxiety]; F41.1 Generalized anxiety disorder; G89.29 Other chronic pain; J44.9 Chronic obstructive pulmonary disease, unspecified; K21.9 Gastro-esophageal reflux disease without esophagitis; M06.9 Rheumatoid arthritis, unspecified; N18.3 Chronic kidney disease, stage 3 (moderate); Z75.1 Person awaiting admission to adequate facility elsewhere; Z79.899 Other long term (current) drug therapy; Z82.5 Family history of asthma and other chronic lower respiratory diseases; Z86.72 Personal history of thrombophlebitis; Z87.891 Personal history of nicotine dependence; Z91.14 Patient's other noncompliance with medication regimen
CPT/HCPCS: 36415; 36600; 71010; 71275; 80048; 80053; 80307; 82803; 83735; 83880; 84443; 84484; 85025; 85379; 87081; 93005; 93306; 93451; 94640; 96374; 96375; 96376; 99156; C1894; J1650; J1940; J2250; J2405; J3010; J3490; J7613; Q9967; G0479; J2060; J2920; J7512

== ENCOUNTER → 2017-12-04 | Outpatient (CLI) | payer MEDICAID ==
[~2017-12-04] MED LIST changes: +ALPR-475 PO; +FLUC200T PO; +FURO20TA3 PO; +GABA-827 PO; +Lidoderm 5% Patch TD; +METH500T7 PO; +PRED20TA PO; +PRED5TAB PO
== END | disposition home or self-care (01) ==
LOC: CFH 15:39
PROVIDERS: ATTEND Nurse Practitioner
DX: R91.8 Other nonspecific abnormal finding of lung field (principal)
CPT/HCPCS: 71250

== ENCOUNTER 2017-12-26 17:50 | Emergency (ER) | payer MEDICAID ==
[~2017-12-26] VITALS: Ht 172.7 cm; Wt 91.4 kg
[2017-12-26 18:44] LABS: BASOPHILS # (AUTO) 0.04 x10^3/uL (0-0.1); BASOPHILS % (AUTO) 1 % (0-1); EOSINOPHILS # (AUTO) 0.52 x10^3/uL (0-0.4); EOSINOPHILS % (AUTO) 7 % (1-7); LYMPHOCYTES # (AUTO) 1.96 x10^3/uL (1-3.4); LYMPHOCYTES % (AUTO) 28 % (22-44); MD NO; MEAN CORPUSCULAR HEMOGLOBIN 29.2 pg (27.0-34.8); MEAN CORPUSCULAR HGB CONC 33.4 g/dL (32.4-35.8); MEAN CORPUSCULAR VOLUME 87.3 fL (80-100); MEAN PLATELET VOLUME 8.3 fL (7.4-10.4); MONOCYTES # (AUTO) 0.39 x10^3/uL (0.2-0.8); MONOCYTES % (AUTO) 6 % (2-9); NEUTROPHILS # (AUTO) 4.23 x10^3/uL (1.8-6.8); NEUTROPHILS % (AUTO) 59 % (42-75); PLATELET COUNT 275 x10^3/uL (130-400); RED BLOOD COUNT 4.82 x10^6/uL (3.82-5.3); RED CELL DISTRIBUTION WIDTH 13.6 % (9.6-15.2)
[2017-12-26 18:50] LABS: ALBUMIN 3.7 g/dL (3.4-5.0); ANION GAP 9 mmol/L (5-15); CALCIUM 9.1 mg/dL (8.5-10.1); CHLORIDE 106 mmol/L (98-107); CREATININE 1.17 mg/dL (0.55-1.02)
[2017-12-26 18:54] LABS: TROPONIN I < 0.015 ng/mL (0.000-0.045)
[2017-12-26] MEDS ORDERED: ONDANSETRON 2MG/ML, 2ML IVPush ONE (21:30)
[2017-12-26] MEDS ORDERED: MORPHINE SULFATE 4 MG/ML, 1ML IVPush PRN (21:30)
[2017-12-26] MEDS ORDERED: SODIUM CHLORIDE FLUSH 10ML SYR IVF ONE (21:30)
[2017-12-26 21:32] VITALS: BP 131/91
[2017-12-26] MEDS ORDERED: ONDANSETRON 2MG/ML, 2ML ONE (21:40)
[2017-12-26] MEDS ORDERED: MORPHINE SULFATE 4 MG/ML, 1ML ONE (21:40)
== END 2017-12-26 22:21 | disposition home or self-care (01) ==
LOC: ED 21:49
DX: R07.89 Other chest pain (principal); I25.2 Old myocardial infarction; F41.9 Anxiety disorder, unspecified
CPT/HCPCS: 36415; 71046; 80048; 82040; 83880; 84484; 85025; 93005; 96374; 96375; 99285; J2405

== ENCOUNTER → 2018-01-01 | Outpatient (CLI) | payer MEDICAID | END | disposition home or self-care (01) | LOC: CVU 16:19 | PROVIDERS: ATTEND Internal Medicine Cardiovascular Disease | DX: I27.20 Pulmonary hypertension, unspecified (principal); I07.1 Rheumatic tricuspid insufficiency | CPT/HCPCS: 93306 ==

== ENCOUNTER 2018-09-07 14:13 | Inpatient (IN) | payer MEDICAID ==
[~2018-09-07] VITALS: Ht 175.3 cm; Wt 112.0 kg
[~2018-09-07 14:13] MED LIST changes: +TRAZ-137 PO; -TRAZ100T15 PO
[2018-09-07 14:59] LABS: BASOPHILS # (AUTO) 0.05 x10^3/uL (0-0.1); BASOPHILS % (AUTO) 1 % (0-1); EOSINOPHILS # (AUTO) 0.08 x10^3/uL (0-0.4); EOSINOPHILS % (AUTO) 1 % (1-7); LYMPHOCYTES # (AUTO) 1.36 x10^3/uL (1-3.4); LYMPHOCYTES % (AUTO) 16 % (22-44); MD NO; MEAN CORPUSCULAR HEMOGLOBIN 30.3 pg (27.0-34.8); MEAN CORPUSCULAR VOLUME 89.1 fL (80-100); MEAN PLATELET VOLUME 8.4 fL (7.4-10.4); MONOCYTES # (AUTO) 0.51 x10^3/uL (0.2-0.8); MONOCYTES % (AUTO) 6 % (2-9); NEUTROPHILS # (AUTO) 6.57 x10^3/uL (1.8-6.8); NEUTROPHILS % (AUTO) 77 % (42-75); PLATELET COUNT 322 x10^3/uL (130-400); RED BLOOD COUNT 5.25 x10^6/uL (3.82-5.3); RED CELL DISTRIBUTION WIDTH 12.8 % (9.6-15.2)
[2018-09-07 15:12] LABS: TROPONIN I < 0.015 ng/mL (0.000-0.045)
[2018-09-07 15:13] LABS: ANION GAP 13 mmol/L (5-15); CALCIUM 9.9 mg/dL (8.5-10.1); CHLORIDE 99 mmol/L (98-107); CREATININE 2.57 mg/dL (0.55-1.02)
[2018-09-07 15:28] LABS: ALBUMIN 4.5 g/dL (3.4-5.0); BILIRUBIN, DIRECT 0.2 mg/dL (0.1-0.2)
[2018-09-07] MEDS ORDERED: SODIUM CHLORIDE 0.9% 1,000ML IVBOLUS ONE (15:30)
[2018-09-07 15:32] LABS: BILIRUBIN,INDIRECT 0.6 mg/dL (0.0-2.0); BILIRUBIN,TOTAL 0.8 mg/dL (0.2-1.0); TOTAL PROTEIN 7.9 g/dL (6.4-8.2)
[2018-09-07 15:37] LABS: CULTURE INDICATED? YES; MICROSCOPIC INDICATED
[2018-09-07] MEDS ORDERED: MORPHINE SULFATE 4 MG/ML, 1ML IVPush ONE (17:00)
[2018-09-07] MEDS ORDERED: ONDANSETRON ODT 4 MG PO ONE (17:30)
[2018-09-07] MEDS ORDERED: MORPHINE SULFATE 4 MG/ML, 1ML ONE (17:55)
[2018-09-07] MEDS ORDERED: hydrALAzine 20 MG/ML, 1ML IVPush PRN (18:00)
[2018-09-07] MEDS ORDERED: POTASSIUM CHLORIDE 20 MEQ TAB.ER.PRT PO ONE (18:00)
[2018-09-07] MEDS ORDERED: ACETAMINOPHEN 325 MG TABLET PO PRN (18:00)
[2018-09-07] MEDS ORDERED: ONDANSETRON 2MG/ML, 2ML ONE (18:03)
[2018-09-07] MEDS: ONDANSETRON 2MG/ML, 2ML IVPush PRN (18:06)
[2018-09-07 19:45] VITALS: BP 121/87
[2018-09-07] MEDS ORDERED: TREPROSTINIL DIOLAMINE HOMEMEDPO SCH (21:00)
[2018-09-07] MEDS: SILDENAFIL 20 MG TABLET PO SCH (21:00)
[2018-09-07] MEDS ORDERED: ALBUTEROL SULFATE 2.5 MG/3 ML NPPB PRN (21:00)
[2018-09-07] MEDS: ALBUTEROL/IPRATROPIUM 2.5MG/0.5MG, 3 ML NPPB SCH (21:00)
[2018-09-07] MEDS: HEPARIN 5,000 UNITS/ML, 1ML SQ SCH (21:02)
[2018-09-07] MEDS: SODIUM CHLORIDE 0.9% 1,000 ML IV SCH (21:03)
[2018-09-07] MEDS: MORPHINE SULFATE 4 MG/ML, 1ML IVPush PRN (22:30)
[2018-09-07] MEDS: TRAZODONE 100MG TABLET PO SCH (22:30)
[2018-09-07] MEDS: GABAPENTIN 300 MG CAPSULE PO SCH (22:30)
[2018-09-08] VITALS (8 sets, daily range): BP systolic 100–108; BP diastolic 65–74
[2018-09-08] MEDS: MORPHINE SULFATE 4 MG/ML, 1ML IVPush PRN (04:31)
[2018-09-08] MEDS: HEPARIN 5,000 UNITS/ML, 1ML SQ SCH ×3 (04:32→22:17)
[2018-09-08 05:12] LABS: BASOPHILS # (AUTO) 0.05 x10^3/uL (0-0.1); BASOPHILS % (AUTO) 1 % (0-1); EOSINOPHILS # (AUTO) 0.14 x10^3/uL (0-0.4); EOSINOPHILS % (AUTO) 2 % (1-7); LYMPHOCYTES # (AUTO) 1.63 x10^3/uL (1-3.4); LYMPHOCYTES % (AUTO) 27 % (22-44); MD NO; MEAN CORPUSCULAR HEMOGLOBIN 30.4 pg (27.0-34.8); MEAN CORPUSCULAR HGB CONC 34.1 g/dL (32.4-35.8); MEAN CORPUSCULAR VOLUME 89.2 fL (80-100); MEAN PLATELET VOLUME 8.4 fL (7.4-10.4); MONOCYTES # (AUTO) 0.48 x10^3/uL (0.2-0.8); MONOCYTES % (AUTO) 8 % (2-9); NEUTROPHILS # (AUTO) 3.69 x10^3/uL (1.8-6.8); NEUTROPHILS % (AUTO) 62 % (42-75); PLATELET COUNT 290 x10^3/uL (130-400); RED BLOOD COUNT 4.76 x10^6/uL (3.82-5.3); RED CELL DISTRIBUTION WIDTH 13.1 % (9.6-15.2)
[2018-09-08 05:17] LABS: ANION GAP 10 mmol/L (5-15); CALCIUM 8.9 mg/dL (8.5-10.1); CHLORIDE 104 mmol/L (98-107)
[2018-09-08 05:18] LABS: CREATININE 2.51 mg/dL (0.55-1.02)
[2018-09-08] MEDS: ONDANSETRON 2MG/ML, 2ML IVPush PRN ×2 (05:49→18:06)
[2018-09-08] MEDS: SODIUM CHLORIDE 0.9% 1,000 ML IV SCH ×2 (05:56→16:16)
[2018-09-08 06:49] LABS: CHLORIDE,URINE RANDOM 33 mmol/L; POTASSIUM,URINE RANDOM 53 mmol/L; SODIUM,URINE RANDOM 10 mmol/L
[2018-09-08] MEDS: SERTRALINE 100MG TABLET PO SCH (08:39)
[2018-09-08] MEDS: SILDENAFIL 20 MG TABLET PO SCH ×3 (08:39→21:00)
[2018-09-08] MEDS: GABAPENTIN 300 MG CAPSULE PO SCH ×3 (08:39→22:17)
[2018-09-08] MEDS: FLUTICASONE/VILANTEROL 100-25MCG/INH INH SCH (08:57)
[2018-09-08] MEDS: HYDROcodone/APAP 5/325 TABLET PO PRN ×4 (08:58→23:54)
[2018-09-08] MEDS: TREPROSTINIL DIOLAMINE HOMEMEDPO SCH ×3 (08:59→21:00)
[2018-09-08] MEDS: ALBUTEROL/IPRATROPIUM 2.5MG/0.5MG, 3 ML NPPB SCH (09:00)
[2018-09-08] MEDS ORDERED: ALBUTEROL/IPRATROPIUM 2.5MG/0.5MG, 3 ML NPPB PRN (11:30)
[2018-09-08] MEDS: TRAZODONE 100MG TABLET PO SCH (22:17)
[2018-09-09] VITALS (9 sets, daily range): BP systolic 87–121; BP diastolic 55–78
[2018-09-09] MEDS: SODIUM CHLORIDE 0.9% 1,000 ML IV SCH ×3 (02:21→22:56)
[2018-09-09] MEDS: HEPARIN 5,000 UNITS/ML, 1ML SQ SCH ×3 (05:20→21:35)
[2018-09-09 05:33] LABS: BASOPHILS # (AUTO) 0.04 x10^3/uL (0-0.1); BASOPHILS % (AUTO) 1 % (0-1); EOSINOPHILS # (AUTO) 0.18 x10^3/uL (0-0.4); EOSINOPHILS % (AUTO) 3 % (1-7); LYMPHOCYTES # (AUTO) 1.71 x10^3/uL (1-3.4); LYMPHOCYTES % (AUTO) 29 % (22-44); MD NO; MEAN CORPUSCULAR HEMOGLOBIN 30.5 pg (27.0-34.8); MEAN CORPUSCULAR VOLUME 89.8 fL (80-100); MONOCYTES # (AUTO) 0.33 x10^3/uL (0.2-0.8); MONOCYTES % (AUTO) 6 % (2-9); NEUTROPHILS # (AUTO) 3.69 x10^3/uL (1.8-6.8); NEUTROPHILS % (AUTO) 62 % (42-75); PLATELET COUNT 236 x10^3/uL (130-400); RED BLOOD COUNT 4.51 x10^6/uL (3.82-5.3); RED CELL DISTRIBUTION WIDTH 13.5 % (9.6-15.2)
[2018-09-09] MEDS: HYDROcodone/APAP 5/325 TABLET PO PRN ×4 (05:34→21:41)
[2018-09-09 05:42] LABS: ANION GAP 11 mmol/L (5-15); CALCIUM 8.9 mg/dL (8.5-10.1); CHLORIDE 102 mmol/L (98-107); CREATININE 1.89 mg/dL (0.55-1.02)
[2018-09-09] MEDS ORDERED: POTASSIUM CHLORIDE 20 MEQ TAB.ER.PRT PO ONE (07:30)
[2018-09-09] MEDS: SERTRALINE 100MG TABLET PO SCH (08:45)
[2018-09-09] MEDS: GABAPENTIN 300 MG CAPSULE PO SCH ×3 (08:45→21:36)
[2018-09-09] MEDS: SILDENAFIL 20 MG TABLET PO SCH ×3 (08:45→21:00)
[2018-09-09] MEDS: FLUTICASONE/VILANTEROL 100-25MCG/INH INH SCH (08:46)
[2018-09-09] MEDS: TREPROSTINIL DIOLAMINE HOMEMEDPO SCH ×3 (08:49→21:00)
[2018-09-09] MEDS: ONDANSETRON 2MG/ML, 2ML IVPush PRN ×2 (10:11→21:40)
[2018-09-09] MEDS: TRAZODONE 100MG TABLET PO SCH (21:36)
[2018-09-10] VITALS (8 sets, daily range): BP systolic 100–149; BP diastolic 67–96
[2018-09-10 05:36] LABS: BASOPHILS # (AUTO) 0.04 x10^3/uL (0-0.1); BASOPHILS % (AUTO) 1 % (0-1); EOSINOPHILS # (AUTO) 0.21 x10^3/uL (0-0.4); EOSINOPHILS % (AUTO) 3 % (1-7); LYMPHOCYTES # (AUTO) 1.64 x10^3/uL (1-3.4); LYMPHOCYTES % (AUTO) 27 % (22-44); MD NO; MEAN CORPUSCULAR HEMOGLOBIN 30.3 pg (27.0-34.8); MEAN CORPUSCULAR HGB CONC 33.9 g/dL (32.4-35.8); MEAN CORPUSCULAR VOLUME 89.7 fL (80-100); MEAN PLATELET VOLUME 9.2 fL (7.4-10.4); MONOCYTES # (AUTO) 0.34 x10^3/uL (0.2-0.8); MONOCYTES % (AUTO) 6 % (2-9); NEUTROPHILS # (AUTO) 3.78 x10^3/uL (1.8-6.8); NEUTROPHILS % (AUTO) 63 % (42-75); PLATELET COUNT 213 x10^3/uL (130-400); RED BLOOD COUNT 4.15 x10^6/uL (3.82-5.3); RED CELL DISTRIBUTION WIDTH 13.3 % (9.6-15.2)
[2018-09-10] MEDS: HEPARIN 5,000 UNITS/ML, 1ML SQ SCH ×3 (05:48→21:30)
[2018-09-10 05:49] LABS: ANION GAP 6 mmol/L (5-15); CHLORIDE 105 mmol/L (98-107)
[2018-09-10 05:53] LABS: CALCIUM 8.6 mg/dL (8.5-10.1); CREATININE 1.25 mg/dL (0.55-1.02)
[2018-09-10] MEDS: HYDROcodone/APAP 5/325 TABLET PO PRN ×4 (05:53→20:08)
[2018-09-10] MEDS: TREPROSTINIL DIOLAMINE HOMEMEDPO SCH ×3 (09:00→20:14)
[2018-09-10] MEDS: GABAPENTIN 300 MG CAPSULE PO SCH ×3 (10:30→20:07)
[2018-09-10] MEDS: SILDENAFIL 20 MG TABLET PO SCH ×3 (10:30→20:16)
[2018-09-10] MEDS: FLUTICASONE/VILANTEROL 100-25MCG/INH INH SCH (10:31)
[2018-09-10] MEDS: SODIUM CHLORIDE 0.9% 1,000 ML IV SCH ×2 (10:37→20:08)
[2018-09-10] MEDS: SERTRALINE 100MG TABLET PO SCH (10:38)
[2018-09-10] MEDS: ONDANSETRON 2MG/ML, 2ML IVPush PRN (15:55)
[2018-09-10] MEDS: DOCUSATE 100 MG CAPSULE PO PRN (17:31)
[2018-09-10] MEDS: TRAZODONE 100MG TABLET PO SCH (20:07)
[2018-09-10] MEDS: MORPHINE SULFATE 4 MG/ML, 1ML IVPush PRN (21:30)
[2018-09-10 22:12] LABS: TROPONIN I 0.023 ng/mL (0.000-0.045)
[2018-09-11 02:00] VITALS: BP 104/70
[2018-09-11] MEDS: ONDANSETRON 2MG/ML, 2ML IVPush PRN (05:35)
[2018-09-11] MEDS: SODIUM CHLORIDE 0.9% 1,000 ML IV SCH (05:36)
[2018-09-11] MEDS: HEPARIN 5,000 UNITS/ML, 1ML SQ SCH ×3 (05:36→22:54)
[2018-09-11] MEDS: DOCUSATE 100 MG CAPSULE PO PRN (05:36)
[2018-09-11] MEDS: HYDROcodone/APAP 5/325 TABLET PO PRN ×4 (05:36→22:54)
[2018-09-11 05:46] LABS: ANION GAP 7 mmol/L (5-15); CHLORIDE 107 mmol/L (98-107)
[2018-09-11 05:47] LABS: TROPONIN I < 0.015 ng/mL (0.000-0.045)
[2018-09-11 05:48] LABS: CALCIUM 8.9 mg/dL (8.5-10.1); CREATININE 0.99 mg/dL (0.55-1.02)
[2018-09-11 07:48] VITALS: BP_SYST 111; BP_SYST 113; BP_SYST 125; BP_DIAS 76; BP_DIAS 79; BP_DIAS 83
[2018-09-11] MEDS: SERTRALINE 100MG TABLET PO SCH (08:33)
[2018-09-11] MEDS: GABAPENTIN 300 MG CAPSULE PO SCH ×3 (08:33→20:42)
[2018-09-11] MEDS: FLUTICASONE/VILANTEROL 100-25MCG/INH INH SCH (08:33)
[2018-09-11] MEDS: TREPROSTINIL DIOLAMINE HOMEMEDPO SCH ×3 (08:37→20:43)
[2018-09-11] MEDS: SILDENAFIL 20 MG TABLET PO SCH ×3 (08:38→20:43)
[2018-09-11 13:26] VITALS: BP 101/78
[2018-09-11] MEDS: TRAZODONE 100MG TABLET PO SCH (20:42)
[2018-09-11 20:44] VITALS: BP 106/73
[2018-09-12] MEDS: MORPHINE SULFATE 4 MG/ML, 1ML IVPush PRN ×2 (01:23→14:56)
[2018-09-12 01:42] VITALS: BP 132/84
[2018-09-12 01:43] VITALS: BP 116/64
[2018-09-12 01:44] VITALS: BP 143/80
[2018-09-12] MEDS: HEPARIN 5,000 UNITS/ML, 1ML SQ SCH ×3 (06:05→22:35)
[2018-09-12] MEDS: HYDROcodone/APAP 5/325 TABLET PO PRN ×3 (06:06→19:55)
[2018-09-12 07:16] VITALS: BP 119/85
[2018-09-12] MEDS: GABAPENTIN 300 MG CAPSULE PO SCH ×3 (10:23→19:59)
[2018-09-12] MEDS: FLUTICASONE/VILANTEROL 100-25MCG/INH INH SCH (10:24)
[2018-09-12] MEDS: DOCUSATE 100 MG CAPSULE PO PRN (10:26)
[2018-09-12] MEDS: SERTRALINE 100MG TABLET PO SCH (10:27)
[2018-09-12] MEDS: SILDENAFIL 20 MG TABLET PO SCH ×3 (10:27→20:02)
[2018-09-12] MEDS: TREPROSTINIL DIOLAMINE HOMEMEDPO SCH ×3 (10:27→20:01)
[2018-09-12] MEDS ORDERED: FUROSEMIDE 20 MG TABLET PO SCH (13:00)
[2018-09-12 13:06] VITALS: BP 105/69
[2018-09-12] MEDS: ONDANSETRON 2MG/ML, 2ML IVPush PRN (16:47)
[2018-09-12 18:38] VITALS: BP 117/77
[2018-09-12] MEDS: TRAZODONE 100MG TABLET PO SCH (20:00)
[2018-09-13 00:39] VITALS: BP 103/67
[2018-09-13] MEDS: HYDROcodone/APAP 5/325 TABLET PO PRN ×2 (04:53→08:55)
[2018-09-13] MEDS: HEPARIN 5,000 UNITS/ML, 1ML SQ SCH (06:00)
[2018-09-13 07:50] VITALS: BP 145/82
[2018-09-13] MEDS ORDERED: FUROSEMIDE 40 MG/4 ML IV ONE (08:00)
[2018-09-13] MEDS ORDERED: FURO20TA3 PO (08:45)
[2018-09-13] MEDS: FLUTICASONE/VILANTEROL 100-25MCG/INH INH SCH (08:51)
[2018-09-13] MEDS: TREPROSTINIL DIOLAMINE HOMEMEDPO SCH (08:51)
[2018-09-13] MEDS: GABAPENTIN 300 MG CAPSULE PO SCH (08:51)
[2018-09-13] MEDS: SERTRALINE 100MG TABLET PO SCH (08:51)
[2018-09-13] MEDS: SILDENAFIL 20 MG TABLET PO SCH (08:51)
== END 2018-09-13 13:23 | disposition home or self-care (01) | DRG 682 ==
LOC: ED 18:27 → EDIP 18:34 → 4WST 19:42
PROVIDERS: ADMIT Internal Medicine; ATTEND Internal Medicine
DX: N17.0 Acute kidney failure with tubular necrosis (principal); J96.21 Acute and chronic respiratory failure with hypoxia; J98.11 Atelectasis; A08.4 Viral intestinal infection, unspecified; F32.9 Major depressive disorder, single episode, unspecified; G47.33 Obstructive sleep apnea (adult) (pediatric); K21.9 Gastro-esophageal reflux disease without esophagitis; I27.21 Secondary pulmonary arterial hypertension; I11.0 Hypertensive heart disease with heart failure; E87.6 Hypokalemia; G47.00 Insomnia, unspecified; E86.0 Dehydration; I50.9 Heart failure, unspecified; Z82.5 Family history of asthma and other chronic lower respiratory diseases; Z79.899 Other long term (current) drug therapy; Z79.1 Long term (current) use of non-steroidal anti-inflammatories (NSAID); Z79.2 Long term (current) use of antibiotics
CPT/HCPCS: 36415; 36600; 71046; 74176; 80048; 80076; 81001; 82436; 82570; 82803; 83690; 83735; 83935; 84100; 84133; 84300; 84484; 85025; 87046; 87086; 87205; 87252; 87427; 89055; 93005; 94640; 96361; 96374; 99285; G0378; J1644; J1940; J2405; Q0162; J7030

== ENCOUNTER 2018-12-05 15:39 | Inpatient (IN) | payer MEDICAID ==
[~2018-12-05] VITALS: Ht 175.3 cm; Wt 98.8 kg
[2018-12-05] MEDS ORDERED: HYDR-3237 PO (17:29)
[2018-12-05] MEDS ORDERED: PLEASE ENTER HEIGHT AND WEIGHT MC SCH (17:30)
[2018-12-05 17:36] VITALS: BP 114/80
[2018-12-05] MEDS ORDERED: ALBUTEROL SULFATE 2.5 MG/3 ML NPPB PRN (18:00)
[2018-12-05 18:15] LABS: BASOPHILS % (AUTO) 1 % (0-1); EOSINOPHILS # (AUTO) 0.19 x10^3/uL (0-0.4); EOSINOPHILS % (AUTO) 2 % (1-7); LYMPHOCYTES # (AUTO) 1.41 x10^3/uL (1-3.4); LYMPHOCYTES % (AUTO) 16 % (22-44); MD NO; MEAN CORPUSCULAR HEMOGLOBIN 30.5 pg (27.0-34.8); MEAN CORPUSCULAR HGB CONC 34.4 g/dL (32.4-35.8); MEAN CORPUSCULAR VOLUME 88.5 fL (80-100); MEAN PLATELET VOLUME 7.4 fL (7.4-10.4); MONOCYTES # (AUTO) 0.43 x10^3/uL (0.2-0.8); MONOCYTES % (AUTO) 5 % (2-9); NEUTROPHILS # (AUTO) 6.59 x10^3/uL (1.8-6.8); NEUTROPHILS % (AUTO) 76 % (42-75); PLATELET COUNT 259 x10^3/uL (130-400); RED BLOOD COUNT 4.54 x10^6/uL (3.82-5.3); RED CELL DISTRIBUTION WIDTH 14.2 % (9.6-15.2)
[2018-12-05 18:27] LABS: ALANINE AMINOTRANSFERASE 24 U/L (12-78); ALBUMIN 3.6 g/dL (3.4-5.0); ANION GAP 10 mmol/L (5-15); CALCIUM 9.2 mg/dL (8.5-10.1); CHLORIDE 102 mmol/L (98-107); CREATININE 1.06 mg/dL (0.55-1.02)
[2018-12-05 18:31] LABS: ALKALINE PHOSPHATASE 79 U/L (45-117); BILIRUBIN,TOTAL 0.6 mg/dL (0.2-1.0)
[2018-12-05] MEDS: ISOSORBIDE DINITRATE 20 MG TABLET PO SCH ×2 (18:39→20:52)
[2018-12-05] MEDS ORDERED: POTASSIUM CHLORIDE 20 MEQ TAB.ER.PRT PO STA (20:08)
[2018-12-05] MEDS ORDERED: POTASSIUM CHLORIDE 20 MEQ in SODIUM CHLORIDE 0.9% 250 ML IV ONE (20:08)
[2018-12-05 20:36] VITALS: BP 95/60
[2018-12-05] MEDS: TRAZODONE 150MG TABLET PO SCH (20:48)
[2018-12-05] MEDS: GABAPENTIN 400 MG CAPSULE PO SCH (20:48)
[2018-12-05] MEDS: SILDENAFIL 20 MG TABLET PO SCH (20:49)
[2018-12-05] MEDS: FUROSEMIDE 20 MG/2 ML IVPush SCH (20:57)
[2018-12-05] MEDS: BUDESONIDE 0.5 MG/2 ML INHA NPPB SCH (21:00)
[2018-12-05] MEDS: ALBUTEROL SULFATE 2.5 MG/3 ML NPPB SCH (21:00)
[2018-12-05] MEDS: TREPROSTINIL PO SCH (21:00)
[2018-12-05] MEDS ORDERED: TREPROSTINIL DIOLAMINE PO SCH (21:00)
[2018-12-06] VITALS (7 sets, daily range): BP systolic 96–103; BP diastolic 56–70
[2018-12-06] MEDS: HYDROcodone/APAP 5/325 TABLET PO PRN ×3 (04:49→21:18)
[2018-12-06 05:51] LABS: ANION GAP 7 mmol/L (5-15); CALCIUM 9.3 mg/dL (8.5-10.1); CHLORIDE 102 mmol/L (98-107); CREATININE 1.15 mg/dL (0.55-1.02)
[2018-12-06] MEDS: ALBUTEROL SULFATE 2.5 MG/3 ML NPPB SCH ×4 (06:00→21:00)
[2018-12-06] MEDS: BUDESONIDE 0.5 MG/2 ML INHA NPPB SCH ×2 (09:00→21:00)
[2018-12-06] MEDS ORDERED: FLUTICASONE/VILANTEROL 100-25MCG/INH INH SCH (09:00)
[2018-12-06] MEDS: SERTRALINE 100MG TABLET PO SCH (09:46)
[2018-12-06] MEDS: FUROSEMIDE 20 MG/2 ML IVPush SCH ×2 (09:46→21:20)
[2018-12-06] MEDS: GABAPENTIN 400 MG CAPSULE PO SCH ×2 (09:46→21:19)
[2018-12-06] MEDS: POTASSIUM CHLORIDE 20 MEQ TAB.ER.PRT PO SCH (09:47)
[2018-12-06] MEDS: TREPROSTINIL PO SCH ×3 (09:47→21:20)
[2018-12-06] MEDS: SPIRONOLACTONE 25 MG TABLET PO SCH ×2 (09:47→21:19)
[2018-12-06] MEDS: SILDENAFIL 20 MG TABLET PO SCH ×3 (09:48→21:19)
[2018-12-06] MEDS: ENOXAPARIN 40 MG/0.4 ML SQ SCH (18:24)
[2018-12-06] MEDS: TRAZODONE 150MG TABLET PO SCH (21:19)
[2018-12-07] VITALS (7 sets, daily range): BP systolic 91–116; BP diastolic 56–76
[2018-12-07] MEDS: HYDROcodone/APAP 5/325 TABLET PO PRN ×3 (04:51→20:41)
[2018-12-07] MEDS: ALBUTEROL SULFATE 2.5 MG/3 ML NPPB SCH ×3 (06:00→23:16)
[2018-12-07] MEDS: BUDESONIDE 0.5 MG/2 ML INHA NPPB SCH ×2 (09:00→23:16)
[2018-12-07] MEDS: POTASSIUM CHLORIDE 20 MEQ TAB.ER.PRT PO SCH (10:14)
[2018-12-07] MEDS: GABAPENTIN 400 MG CAPSULE PO SCH ×2 (10:14→20:41)
[2018-12-07] MEDS: SERTRALINE 100MG TABLET PO SCH (10:15)
[2018-12-07] MEDS: TREPROSTINIL PO SCH ×3 (10:15→20:42)
[2018-12-07] MEDS: SPIRONOLACTONE 25 MG TABLET PO SCH ×2 (11:10→20:41)
[2018-12-07] MEDS: FUROSEMIDE 20 MG/2 ML IVPush SCH ×2 (11:10→20:41)
[2018-12-07] MEDS: SILDENAFIL 20 MG TABLET PO SCH ×3 (11:10→20:41)
[2018-12-07] MEDS: ENOXAPARIN 40 MG/0.4 ML SQ SCH (18:14)
[2018-12-07] MEDS: TRAZODONE 150MG TABLET PO SCH (20:40)
[2018-12-08 01:11] VITALS: BP 99/62
[2018-12-08] MEDS: ALBUTEROL SULFATE 2.5 MG/3 ML NPPB SCH ×4 (03:30→21:00)
[2018-12-08] MEDS: HYDROcodone/APAP 5/325 TABLET PO PRN ×3 (04:19→16:18)
[2018-12-08 06:05] LABS: ANION GAP 5 mmol/L (5-15); CALCIUM 8.5 mg/dL (8.5-10.1); CHLORIDE 100 mmol/L (98-107)
[2018-12-08 06:06] LABS: CREATININE 0.97 mg/dL (0.55-1.02)
[2018-12-08] MEDS: POTASSIUM CHLORIDE 20 MEQ TAB.ER.PRT PO SCH ×3 (08:36→16:19)
[2018-12-08] MEDS: SPIRONOLACTONE 25 MG TABLET PO SCH ×2 (08:36→20:31)
[2018-12-08] MEDS: SERTRALINE 100MG TABLET PO SCH (08:36)
[2018-12-08] MEDS: SILDENAFIL 20 MG TABLET PO SCH ×3 (08:36→20:31)
[2018-12-08] MEDS: GABAPENTIN 400 MG CAPSULE PO SCH ×2 (08:37→20:31)
[2018-12-08 08:38] VITALS: BP 118/82
[2018-12-08] MEDS: TREPROSTINIL PO SCH ×3 (08:44→20:32)
[2018-12-08] MEDS: BUDESONIDE 0.5 MG/2 ML INHA NPPB SCH ×2 (09:00→19:22)
[2018-12-08] MEDS: FUROSEMIDE 20 MG/2 ML IVPush SCH ×2 (09:55→16:22)
[2018-12-08 14:26] VITALS: BP 114/72
[2018-12-08] MEDS ORDERED: ALBUTEROL SULFATE 2.5 MG/3 ML NPPB SCH (16:00)
[2018-12-08] MEDS: ENOXAPARIN 40 MG/0.4 ML SQ SCH (16:19)
[2018-12-08 19:53] VITALS: BP 107/63
[2018-12-08] MEDS: TRAZODONE 150MG TABLET PO SCH (20:31)
[2018-12-09] MEDS: HYDROcodone/APAP 5/325 TABLET PO PRN ×5 (00:36→20:49)
[2018-12-09 02:00] VITALS: BP 115/80
[2018-12-09 05:21] LABS: ANION GAP 4 mmol/L (5-15); CALCIUM 9.3 mg/dL (8.5-10.1); CHLORIDE 105 mmol/L (98-107); CREATININE 0.94 mg/dL (0.55-1.02)
[2018-12-09] MEDS: ALBUTEROL SULFATE 2.5 MG/3 ML NPPB SCH ×4 (06:00→21:05)
[2018-12-09 07:27] VITALS: BP 112/76
[2018-12-09] MEDS: BUDESONIDE 0.5 MG/2 ML INHA NPPB SCH ×2 (07:53→21:05)
[2018-12-09] MEDS: SPIRONOLACTONE 25 MG TABLET PO SCH ×2 (08:07→20:51)
[2018-12-09] MEDS: POTASSIUM CHLORIDE 20 MEQ TAB.ER.PRT PO SCH ×2 (08:07→17:17)
[2018-12-09] MEDS: GABAPENTIN 400 MG CAPSULE PO SCH ×2 (08:08→20:52)
[2018-12-09] MEDS: SERTRALINE 100MG TABLET PO SCH (08:08)
[2018-12-09] MEDS: SILDENAFIL 20 MG TABLET PO SCH ×3 (08:08→20:51)
[2018-12-09] MEDS: TREPROSTINIL PO SCH ×3 (08:09→20:52)
[2018-12-09] MEDS: FUROSEMIDE 20 MG/2 ML IVPush SCH ×2 (08:09→20:50)
[2018-12-09 12:51] VITALS: BP 146/78
[2018-12-09 12:54] VITALS: BP 92/61
[2018-12-09] MEDS ORDERED: LIDOCAINE 1%, 20ML ONE (14:20)
[2018-12-09] MEDS ORDERED: MIDAZOLAM 1 MG/ML, 2ML ONE (14:20)
[2018-12-09] MEDS ORDERED: FENTANYL PF 100 MCG/2ML ONE (14:20)
[2018-12-09] MEDS: ENOXAPARIN 40 MG/0.4 ML SQ SCH (17:17)
[2018-12-09] MEDS: TRAZODONE 150MG TABLET PO SCH (20:48)
[2018-12-09 21:14] VITALS: BP 94/58
[2018-12-09] MEDS ORDERED: FUROSEMIDE 20 MG/2 ML IV ONE (23:00)
[2018-12-10 02:41] VITALS: BP 98/67
[2018-12-10] MEDS: ALBUTEROL SULFATE 2.5 MG/3 ML NPPB SCH ×4 (06:00→21:00)
[2018-12-10] MEDS: BUDESONIDE 0.5 MG/2 ML INHA NPPB SCH ×2 (07:21→21:00)
[2018-12-10 07:35] VITALS: BP 117/75
[2018-12-10] MEDS: SPIRONOLACTONE 25 MG TABLET PO SCH ×2 (08:16→20:34)
[2018-12-10] MEDS: POTASSIUM CHLORIDE 20 MEQ TAB.ER.PRT PO SCH ×2 (08:16→16:31)
[2018-12-10] MEDS: SERTRALINE 100MG TABLET PO SCH (08:16)
[2018-12-10] MEDS: FUROSEMIDE 20 MG/2 ML IVPush SCH ×2 (08:16→20:34)
[2018-12-10] MEDS: GABAPENTIN 400 MG CAPSULE PO SCH ×2 (08:17→20:32)
[2018-12-10] MEDS: SILDENAFIL 20 MG TABLET PO SCH ×3 (08:17→20:32)
[2018-12-10] MEDS: HYDROcodone/APAP 5/325 TABLET PO PRN ×2 (08:17→16:29)
[2018-12-10] MEDS: TREPROSTINIL PO SCH ×3 (08:22→20:37)
[2018-12-10] MEDS ORDERED: MAALOX/HYOSCYAMINE/LIDOCAINE 45 ML BTL PO ONE (12:30)
[2018-12-10 16:26] VITALS: BP 119/86
[2018-12-10] MEDS: ENOXAPARIN 40 MG/0.4 ML SQ SCH (16:31)
[2018-12-10 20:16] VITALS: BP 113/73
[2018-12-10] MEDS: TRAZODONE 150MG TABLET PO SCH (20:32)
[2018-12-11] MEDS: HYDROcodone/APAP 5/325 TABLET PO PRN ×3 (02:05→18:11)
[2018-12-11 03:32] VITALS: BP 107/71
[2018-12-11] MEDS: ALBUTEROL SULFATE 2.5 MG/3 ML NPPB SCH ×4 (06:00→20:16)
[2018-12-11 07:05] VITALS: BP 111/76
[2018-12-11] MEDS: BUDESONIDE 0.5 MG/2 ML INHA NPPB SCH ×2 (07:09→20:16)
[2018-12-11] MEDS: FUROSEMIDE 20 MG/2 ML IVPush SCH ×2 (09:53→21:24)
[2018-12-11] MEDS: POTASSIUM CHLORIDE 20 MEQ TAB.ER.PRT PO SCH ×2 (09:53→16:53)
[2018-12-11] MEDS: GABAPENTIN 400 MG CAPSULE PO SCH ×2 (09:54→21:25)
[2018-12-11] MEDS: SERTRALINE 100MG TABLET PO SCH (09:54)
[2018-12-11] MEDS: SPIRONOLACTONE 25 MG TABLET PO SCH ×2 (09:55→21:25)
[2018-12-11] MEDS: TREPROSTINIL PO SCH ×3 (09:55→21:00)
[2018-12-11] MEDS: SILDENAFIL 20 MG TABLET PO SCH ×3 (09:55→21:26)
[2018-12-11 12:15] VITALS: BP 114/76
[2018-12-11] MEDS: ENOXAPARIN 40 MG/0.4 ML SQ SCH (16:56)
[2018-12-11] MEDS: FAMOTIDINE 20 MG TABLET PO SCH ×2 (18:11→19:19)
[2018-12-11 19:58] VITALS: BP 106/73
[2018-12-11] MEDS: TRAZODONE 150MG TABLET PO SCH (21:25)
[2018-12-12 02:31] VITALS: BP 107/70
[2018-12-12] MEDS: ALBUTEROL SULFATE 2.5 MG/3 ML NPPB SCH ×3 (07:03→14:21)
[2018-12-12] MEDS: BUDESONIDE 0.5 MG/2 ML INHA NPPB SCH (07:03)
[2018-12-12 08:00] VITALS: BP 113/80
[2018-12-12] MEDS ORDERED: FURO80TA77 PO (09:08)
[2018-12-12] MEDS ORDERED: SPIR25TA PO (09:08)
[2018-12-12] MEDS ORDERED: POTA20TA6 PO (09:08)
[2018-12-12] MEDS: FUROSEMIDE 20 MG/2 ML IVPush SCH (09:20)
[2018-12-12] MEDS: POTASSIUM CHLORIDE 20 MEQ TAB.ER.PRT PO SCH (09:22)
[2018-12-12] MEDS: HYDROcodone/APAP 5/325 TABLET PO PRN ×2 (09:22→16:22)
[2018-12-12] MEDS: GABAPENTIN 400 MG CAPSULE PO SCH (09:22)
[2018-12-12] MEDS: FAMOTIDINE 20 MG TABLET PO SCH (09:22)
[2018-12-12] MEDS: SERTRALINE 100MG TABLET PO SCH (09:22)
[2018-12-12] MEDS: SPIRONOLACTONE 25 MG TABLET PO SCH (09:22)
[2018-12-12] MEDS: SILDENAFIL 20 MG TABLET PO SCH ×2 (09:23→16:22)
[2018-12-12] MEDS: TREPROSTINIL PO SCH ×2 (09:25→16:23)
[2018-12-12 14:03] VITALS: BP 107/71
== END 2018-12-12 17:08 | disposition home health service (06) | DRG 286 ==
LOC: CVU 15:39 → ORIP 16:53 → 5SO 16:59 → DCLOUNGE 12-12 16:50
PROVIDERS: ADMIT Internal Medicine Cardiovascular Disease; ATTEND Internal Medicine Cardiovascular Disease
PROC: 4A023N6 Measurement of Cardiac Sampling and Pressure, Right Heart, Percutaneous Approach (ICD-10-PCS; principal; 2018-12-05)
PROC: B31S1ZZ Fluoroscopy of Right Pulmonary Artery using Low Osmolar Contrast (ICD-10-PCS; 2018-12-05)
DX: I11.0 Hypertensive heart disease with heart failure (principal); I26.09 Other pulmonary embolism with acute cor pulmonale; F11.20 Opioid dependence, uncomplicated; J96.11 Chronic respiratory failure with hypoxia; I50.33 Acute on chronic diastolic (congestive) heart failure; F32.9 Major depressive disorder, single episode, unspecified; F41.9 Anxiety disorder, unspecified; G89.29 Other chronic pain; I50.810 Right heart failure, unspecified; I95.9 Hypotension, unspecified; I07.1 Rheumatic tricuspid insufficiency; E87.6 Hypokalemia; K21.9 Gastro-esophageal reflux disease without esophagitis; Z82.5 Family history of asthma and other chronic lower respiratory diseases; Z87.891 Personal history of nicotine dependence; Z99.81 Dependence on supplemental oxygen; Z90.721 Acquired absence of ovaries, unilateral; Z82.49 Family history of ischemic heart disease and other diseases of the circulatory system
CPT/HCPCS: 36415; 93451; J7613; J7626; 71045; 71275; 80048; 80053; 83880; 85025; 93005; 93306; 94640; 99156; C1769; C1894; G0378; J1650; J2250; J3010; J3480; J3490; J1940; J7050

== ENCOUNTER 2019-07-21 13:15 | Emergency (ER) | payer MEDICAID ==
[~2019-07-21] VITALS: Ht 175.3 cm; Wt 90.4 kg
[~2019-07-21 13:15] MED LIST changes: -ALPR-475 PO; +ALPR0.5T7 PO; +FURO80TA77 PO; +HYDR-826 PO; -HYDR25TA11 PO; +POTA20TA6 PO; +SPIR25TA PO; +VERA240T10 PO; -VERA240T86 PO
--- NOTE | 2019-07-21 13:44 | NUR ---
FROM LOBBY TO ROOM AT THIS TIME
--- NOTE | 2019-07-21 13:50 | NUR ---
MD AT BEDSIDE TO ASSESS PT
--- NOTE | 2019-07-21 13:51 | NUR ---
CHEST XRAY DONE AT THIS TIME
--- NOTE | 2019-07-21 14:17 | NUR ---
THIS IS A 53YO FEMALE THAT CAME IN TODAY FOR SOB AND STATES HER CHEST FEELS HEAVY. PT HAS PULM HTN AND A CARDIAC HISTORY. PT STATES RECENTLY SHE HAS BEEN MORE DIZZY THAN NORMAL AND FELL YESTERDAY. PT IS CONNECTED TO ALL MONITORING VSS. PT IS ON HER NORMAL 4L O2 AND SATS ARE HIGH 90'S AT THIS TIME. PT IS RESTING ON GURNEY WATCHING TV. CALL LIGHT WITHIN REACH. NO FURTHER NEEDS EXPRESSED AT THIS TIME.
[2019-07-21 14:25] LABS: BASOPHILS # (AUTO) 0.04 x10^3/uL (0-0.1); BASOPHILS % (AUTO) 1 % (0-1); EOSINOPHILS % (AUTO) 2 % (1-7); LYMPHOCYTES # (AUTO) 0.96 x10^3/uL (1-3.4); LYMPHOCYTES % (AUTO) 15 % (22-44); MD NO; MEAN CORPUSCULAR HEMOGLOBIN 30.4 pg (27.0-34.8); MEAN CORPUSCULAR HGB CONC 33.4 g/dL (32.4-35.8); MEAN CORPUSCULAR VOLUME 91.3 fL (80-100); MEAN PLATELET VOLUME 8.1 fL (7.4-10.4); MONOCYTES # (AUTO) 0.37 x10^3/uL (0.2-0.8); MONOCYTES % (AUTO) 6 % (2-9); NEUTROPHILS # (AUTO) 5.16 x10^3/uL (1.8-6.8); NEUTROPHILS % (AUTO) 78 % (42-75); PLATELET COUNT 228 x10^3/uL (130-400); RED BLOOD COUNT 4.31 x10^6/uL (3.82-5.3); RED CELL DISTRIBUTION WIDTH 13.8 % (9.6-15.2)
[2019-07-21 14:35] LABS: ALBUMIN 4.1 g/dL (3.4-5.0); ANION GAP 8 mmol/L (5-15); CALCIUM 8.8 mg/dL (8.5-10.1); CHLORIDE 103 mmol/L (98-107); CREATININE 1.08 mg/dL (0.55-1.02)
[2019-07-21 14:39] LABS: TROPONIN I < 0.015 ng/mL (0.000-0.045)
--- NOTE | 2019-07-21 15:08 | NUR ---
ALL RESULTS BACK AT THIS TIME, CHART UP FOR RECHECK
--- NOTE | 2019-07-21 15:11 | NUR ---
PT BP 83/55, PT REPORTING CHEST PRESSURE AND TIGHTNESS NOTED SATS DROPPED TO 88% ON NORMAL 4L. MD UPDATED, REPEAT EKG COMPLETED. NO FURTHER ORDERS AT THIS TIME.
--- NOTE | 2019-07-21 15:48 | NUR ---
DR MENDOZA AT BEDSIDE TO ASSESS PT.
--- NOTE | 2019-07-21 16:18 | NUR ---
TASK RN: PT SITTING UP IN GURNEY, RESPIRATIONS EVEN/UNLABORED. PT DENIES CP/DIZZINESS. PER CARDS MD, PT TO BE MANAGED OUTPATIENT. POC IS DC. PT OFF MONITORING AND ALLOWED TO DRESS
[2019-07-21 16:19] VITALS: BP 93/58
--- NOTE | 2019-07-21 16:40 | NUR ---
TASK RN: DC EDUCATION PROVIDED, PT DEMONSTRATES UNDERSTANDING. PT AMBUALTED STEADILY TO DC WITH RN ON OWN O2. FRIEND IN LOBBY TO TRANSPORT PT HOME.
== END 2019-07-21 16:42 | disposition home or self-care (01) ==
LOC: ED 16:12
DX: I27.0 Primary pulmonary hypertension (principal); J45.909 Unspecified asthma, uncomplicated; I50.9 Heart failure, unspecified; F41.1 Generalized anxiety disorder
CPT/HCPCS: 36415; 71045; 80048; 82040; 83880; 84484; 85025; 93005; 99284

== ENCOUNTER 2019-11-15 14:07 | Emergency (ER) | payer MEDICAID ==
[~2019-11-15] VITALS: Ht 175.3 cm; Wt 92.9 kg
--- NOTE | 2019-11-15 14:26 | NUR ---
PT C/O SOB SINCE YESTERDAY, WHILE LAYING AND SITTING. HX PULM HTN. PT HOME 02 4L. CONNECTED TO MONITORING. CALL LIGHT IN REACH. MD AT BEDSIDE, AWAITING ORDERS AT THIS TIME.
[2019-11-15] MEDS ORDERED: SODIUM CHLORIDE FLUSH 10ML SYR IVF ONE (15:00)
[2019-11-15 15:02] LABS: BASOPHILS # (AUTO) 0.05 x10^3/uL (0-0.1); BASOPHILS % (AUTO) 1 % (0-1); EOSINOPHILS # (AUTO) 0.22 x10^3/uL (0-0.4); EOSINOPHILS % (AUTO) 5 % (1-7); LYMPHOCYTES # (AUTO) 1.07 x10^3/uL (1-3.4); LYMPHOCYTES % (AUTO) 25 % (22-44); MD NO; MEAN CORPUSCULAR HEMOGLOBIN 28.8 pg (27.0-34.8); MEAN CORPUSCULAR HGB CONC 32.5 g/dL (32.4-35.8); MEAN CORPUSCULAR VOLUME 88.8 fL (80-100); MEAN PLATELET VOLUME 7.9 fL (7.4-10.4); MONOCYTES # (AUTO) 0.26 x10^3/uL (0.2-0.8); MONOCYTES % (AUTO) 6 % (2-9); NEUTROPHILS # (AUTO) 2.65 x10^3/uL (1.8-6.8); NEUTROPHILS % (AUTO) 62 % (42-75); PLATELET COUNT 230 x10^3/uL (130-400); RED BLOOD COUNT 4.56 x10^6/uL (3.82-5.3); RED CELL DISTRIBUTION WIDTH 13.5 % (9.6-15.2)
[2019-11-15 15:05] LABS: ALBUMIN 3.6 g/dL (3.4-5.0); ANION GAP 6 mmol/L (5-15); CALCIUM 8.9 mg/dL (8.5-10.1); CHLORIDE 107 mmol/L (98-107); CREATININE 1.24 mg/dL (0.55-1.02)
[2019-11-15 15:08] LABS: TROPONIN I < 0.015 ng/mL (0.000-0.045)
--- NOTE | 2019-11-15 15:22 | NUR ---
PT RESTING ON AUDI. ARIEL. TASK RN INSTERTED PIV.
[2019-11-15 15:42] LABS: INTERNATIONAL NORMALIZED RATIO 0.95 (0.93-1.1)
--- NOTE | 2019-11-15 15:50 | NUR ---
NEW ORDER RECEIVED
--- NOTE | 2019-11-15 16:14 | NUR ---
PT RESTING ON [place] WATCHING TV.
--- NOTE | 2019-11-15 16:21 | NUR ---
ALL RESULTS ARE BACK AT THIS TIME. CHART UP FOR RECHECK.
--- NOTE | 2019-11-15 16:36 | NUR ---
RECEIVED NEW ORDER FOR CTA.
--- NOTE | 2019-11-15 17:09 | NUR ---
PT RESTING COMFORTABLY ON GURNEY. DORIANN. AWAITING CT.
[2019-11-15] MEDS ORDERED: OMNIPAQUE 350 MG/ML, 100ML BOTTLE ONE (17:32)
--- NOTE | 2019-11-15 17:32 | NUR ---
PT AT CT
--- NOTE | 2019-11-15 17:43 | NUR ---
PT BACK FROM CT. PT RESTING COMFORTABLY ON RWEST KILL.
--- NOTE | 2019-11-15 17:59 | NUR ---
BREAK RN: PT WATCHING TV IN ROOM. OXYGEN ON. PULSE OX ON. NO ACUTE DISTRESS NOTED. VS STABLE WILL CONTINUE TO MONITOR WHILE PRIMARY RN IS ON BREAK.
[2019-11-15] MEDS ORDERED: AZITHROMYCIN 500 MG in SODIUM CHLORIDE 0.9% 250 ML IV ONE (18:30)
--- NOTE | 2019-11-15 18:32 | NUR ---
REPORT GIVEN TO JC SCHMID
[2019-11-15 18:37] LABS: TROPONIN I < 0.015 ng/mL (0.000-0.045)
[2019-11-15 19:01] VITALS: BP 94/52
--- NOTE | 2019-11-15 19:01 | NUR ---
MEDS ADMIN PER JAN. PT RESTING COMFORTABLY ON GURNEY. ARIEL,
== END 2019-11-15 20:13 | disposition home or self-care (01) ==
LOC: ED 15:34
DX: R09.02 Hypoxemia (principal); I11.0 Hypertensive heart disease with heart failure; I50.9 Heart failure, unspecified; J18.9 Pneumonia, unspecified organism; R06.00 Dyspnea, unspecified; J45.909 Unspecified asthma, uncomplicated
CPT/HCPCS: 36415; 71045; 71275; 80048; 82040; 83880; 84484; 85025; 85379; 85610; 85730; 93005; 96365; 96366; 99284; J0456; J7050; Q9967

== ENCOUNTER 2021-06-23 08:23 | Day surgery (SDC) | payer MEDICAID ==
[~2021-06-23] VITALS: Ht 175.3 cm; Wt 76.4 kg
[~2021-06-23 08:23] MED LIST changes: -CYCL-259 PO; +CYCL10TA2 PO; +METH-639 PO; -METH500T7 PO; +SERT-331 PO; -SERT25TA3 PO; -TRAZ-137 PO; +TRAZ-175 PO
[2021-06-23] MEDS ORDERED: SODIUM CHLORIDE 0.9% 1,000 ML IV SCH (09:00)
[2021-06-23] MEDS ORDERED: DIPHENHYDRAMINE 50 MG/ML, 1ML IVPush ONE (09:00)
[2021-06-23 09:12] LABS: BASOPHILS % (AUTO) 1 % (0-1); EOSINOPHILS % (AUTO) 6 % (1-7); LYMPHOCYTES % (AUTO) 24 % (22-44); MEAN CORPUSCULAR HEMOGLOBIN 29.5 pg (27.0-34.8); MEAN CORPUSCULAR HGB CONC 33.6 g/dL (32.4-35.8); MEAN PLATELET VOLUME 7.7 fL (7.4-10.4); MONOCYTES % (AUTO) 5 % (2-9); NEUTROPHILS % (AUTO) 64 % (42-75); PLATELET COUNT 200 x10^3/uL (130-400); RED BLOOD COUNT 4.56 x10^6/uL (3.82-5.3); RED CELL DISTRIBUTION WIDTH 13.6 % (9.6-15.2)
[2021-06-23] MEDS ORDERED: AMBR10TA3 PO (09:20)
[2021-06-23] MEDS ORDERED: BUPR75TA6 PO (09:20)
[2021-06-23] MEDS ORDERED: ALPR0.5T7 PO (09:20)
[2021-06-23] MEDS ORDERED: SERT100T32 PO (09:20)
[2021-06-23] MEDS ORDERED: OMEP-110 PO (09:20)
[2021-06-23] MEDS ORDERED: GABA600T7 PO (09:20)
[2021-06-23] MEDS ORDERED: ALBU8.5H8 INH (09:20)
[2021-06-23] MEDS ORDERED: POTA20TA6 PO (09:20)
[2021-06-23] MEDS ORDERED: TREP1VIA SQ (09:20)
[2021-06-23 09:22] VITALS: BP 101/59
[2021-06-23 09:24] LABS: ANION GAP 5 mmol/L (5-15); CALCIUM 9.3 mg/dL (8.5-10.1); CHLORIDE 105 mmol/L (98-107)
[2021-06-23 09:28] LABS: CREATININE 1.14 mg/dL (0.55-1.02)
[2021-06-23] MEDS ORDERED: DIPHENHYDRAMINE 50 MG/ML, 1ML ONE (09:35)
[2021-06-23] MEDS ORDERED: MIDAZOLAM 1 MG/ML, 2ML ONE (10:26)
[2021-06-23] MEDS ORDERED: FENTANYL PF 100 MCG/2ML ONE (10:26)
== END 2021-06-23 12:20 | disposition home or self-care (01) ==
LOC: CACL 08:23
PROVIDERS: ATTEND Internal Medicine Cardiovascular Disease
DX: I27.21 Secondary pulmonary arterial hypertension (principal); J44.9 Chronic obstructive pulmonary disease, unspecified; Z79.891 Long term (current) use of opiate analgesic; Z79.899 Other long term (current) drug therapy; Z99.81 Dependence on supplemental oxygen
CPT/HCPCS: 36415; 80048; 83880; 85025; 93451; 99156; 99157; C1769; C1894; J1200; J2250; J3010